=== PATIENT | female | born 1945 | race Caucasian/White ===

== ENCOUNTER → 2016-12-08 | Day surgery (SDC) | payer MEDICARE ==
[~2016-12-08] MED LIST: ATEN-173 PO; DABI1CAP PO; FLEC50TA20 PO; LEVO88TA3 PO; LISI10TA PO; SIMV20TA2 PO
== END | disposition home or self-care (01) ==
LOC: C.CATH 06:43
PROVIDERS: ATTEND Internal Medicine Cardiovascular Disease
DX: I48.0 Paroxysmal atrial fibrillation (principal); I34.1 Nonrheumatic mitral (valve) prolapse; I27.2 Other secondary pulmonary hypertension; Z53.8 Procedure and treatment not carried out for other reasons; E78.00 Pure hypercholesterolemia, unspecified

== ENCOUNTER → 2017-07-28 | Outpatient (CLI) | payer MEDICARE ==
[~2017-07-28] MED LIST changes: +AMIO200T4 PO; -FLEC50TA20 PO; +HYDR12.56 PO
--- NOTE | 2017-07-29 07:57 | MAMMOGRAPHY REPORT ---
BILATERAL DIGITAL SCREENING MAMMOGRAM TOMOSYNTHESIS WITH CAD: 07/28/2017 CLINICAL HISTORY: Routine screening. TECHNIQUE: Breast tomosynthesis in addition to standard 2D mammography was performed. Current study was also evaluated with a Computer Aided Detection (CAD) system. COMPARISON: Comparison is made to exams dated: 03/28/2016 mammogram, 03/26/2015 mammogram, 03/21/2014 mammogram, 03/16/2013 mammogram, 03/15/2012 mammogram, and 03/05/2011 mammogram - [facility]. BREAST COMPOSITION: There are scattered areas of fibroglandular density in both breasts. FINDINGS: The parenchymal pattern is unchanged. No developing mass, architectural distortion or clus ter of suspicious microcalcifications is seen in either breast. IMPRESSION: ACR BI-RADS CATEGORY 2: BENIGN There is no mammographic evidence of malignancy. A 1 year screening mammogram is recommended. The pa tient will receive written notification of the results. Approximately 10% of breast cancers are not detected with mammography. A negative mammographic report should not delay biopsy if a clinically suggestive mass is present. Danika Esparza M.D. ay/:07/28/2017 13:27:19 House Mover Helper: Trinity HERNANDEZ(Tamie)(Vito), [facility] letter sent: Normal 1/2 BI-RADS Code: ACR BI-RADS Category 2: Benign
== END | disposition home or self-care (01) ==
LOC: C.MAMM 09:51
PROVIDERS: ATTEND Family Medicine
DX: Z12.31 Encounter for screening mammogram for malignant neoplasm of breast (principal)

== ENCOUNTER 2022-12-27 11:56 | Inpatient (IN) ==
[2022-12-27 12:28] LABS: Basophils # (auto) 0.03 K/uL (0.00-0.20); Basophils % (auto) 0.4 %; Eosinophils # (auto) 0.02 K/uL (0.00-0.50); Eosinophils % (auto) 0.3 %; Hematocrit (blood only) 49.9 % (37.0-47.0); Hemoglobin 16.8 g/dl (12.0-16.0); Immature Granulocytes # (auto) 0.03 K/uL (0.01-0.20); Immature Granulocytes % (auto) 0.4 %; Lymphocytes # (auto) 2.12 K/uL (1.20-3.40); Lymphocytes % (auto) 26.6 %; Mean Corpuscular Hgb Conc 33.7 g/dL (32.0-36.0); Mean Platelet Volume 9.8 fL (9.4-12.4); Monocytes # (auto) 0.72 K/uL (0.11-0.59); Neutrophils # (auto) 5.06 K/uL (1.40-6.50); Neutrophils % (auto) 63.3 %; Platelet Count 257 K/uL (130-400); RDW Standard Deviation 45.8 fL (36.4-46.3); Red Blood Count 5.25 M/uL (4.20-5.40); White Blood Count 7.98 K/ul (4.8-10.8)
[2022-12-27 12:31] LABS: INR 1.1 (0.9-1.1); Partial Thromboplastin Ratio 1.1; Partial Thromboplastin Time 30.9 Seconds (21.0-31.0); Prothrombin Time 12.2 Seconds (9.0-12.0)
[2022-12-27] MEDS ORDERED: SODIUM CHLORIDE 0.9% 500 ML IV ONE (12:49)
--- NOTE | 2022-12-27 12:50 | Emergency Department Note ---
Impression & Plan NSVT (nonsustained ventricular tachycardia), Hypertension, Afib, Cardiac pacemaker in situ, Left bundle branch block, Elevated hemoglobin ED Provider Note NAME: MELISSA GRANADOS AGE: 77 SEX: F ARRIVES VIA: Walk-In INFORMANT: Patient ED PROVIDER(S): Alfonso Singleton MD CHIEF COMPLAINT: Vtach on pacemaker interrogation, referred. PLAN: Disposition: Admit MEDICAL DECISION MAKING: The patient is a pleasant 77-year-old woman with a past medical history of hyp ertension, hyperlipidemia, hypothyroidism, status post PPM who presents to the emergency department referred by her [employer] natural gas technician for detection of ventricular tachycardia on remote interrogation of her device. The patient reports she was surprised when she received a phone call because she has been feeling well. She notes she did go for a walk yesterday for a mile and a half and felt well but did note her heart was in A-fib as indicated by her Apple Watch. She reports this lasted approximately 15 minutes and has been feeling well since then. She denies cp, sob, near fainting or fainting episodes, fevers, chills, cough, congestion, GI or symptoms. On arrival emergency department patient is no acute distress, afebrile with heart rate initially 110s in atrial fibrillation with RVR with blood pressure 180s/130s but signs otherwise stable. Upon my evaluation however in the room the patient had a heart rate of 60 that was paced and blood pressure 150s/100s. The patient appears clinically dry. EKG on arrival demonstrates atrial fibrillation with RVR at 100 with left bundle branch block without Sgarbossa criteria. However while the patient was in her room on the monitor had returned to a paced rhythm in the 60s with narrow complex. Chest x-ray negative for acute abnormality. WBC and platelet within normal limits. H/H 16.8/49.9 consistent with patient's clinical dry appearance. No recent values for comparison. Chemistry without metabolic acidosis. BUN/creatinine is 28 consistent with component of dehydration. Electrolytes and LFTs unremarkable. High-sensitivity troponin 6.9, within normal limits. TSH within normal limits. Case was discussed with [employer] natural gas technician today on transmitting interrogation from the emergency department. He notes that the patient did have episode yesterday around 11 AM which correlates with the timing question. This dem onstrated a wide-complex tachycardia in the upper 140s where he could not completely exclude V. tach though does agree that reviewing other episodes of A- fib with RVR the patient has developed conduction delay at slower rates similar to what she exhibited upon arrival to the emergency department today. I also reviewed the patient's interrogation from yesterday with the patient's [employer] natural gas technician who had contacted the patient this morning. He did facilitate consultation with EP fellow who had reviewed the report. Appreciate consultation with [facility] EP fellow, Dr. Sainz. He describes his review of the transmitted interrogation and is confident that the patient did have nonsustained VT on the event evaluated yesterday. Recommends ischemic evaluation including troponin, echocardiogram and monitoring. Given the holiday weekend patient was referred to the hospital service for admission for further management. The patient and her at the bedside agree with plan. Case was discussed with Dr. Maza, [facility] hospitalist, who will evaluate the patient for admission. Triage Nursing notes reviewed and agree them. Prior/outside medical records reviewed Vital Signs: reviewed Differential diagnosis: Premature contractions, electrolyte abnormality, cardiac dysrhythmia, thyroid dysfunction, pulmonary embolism, infection, gastrointestinal, as well as other pathologies. ER treatment provided: See below. Diagnostics interpreted by me: ECG: Atrial fibrillation with RVR, 100bpm, no ectopy, left bundle branch block, no sgarbossa criteria. Cardiac Monitoring: An order for continuous cardiac monitoring was placed and demonstrated Atrial fibrillation with RVR, 100 bpm, no ectopy. Laboratory studies: See below Imaging studies: See below Consultation(s): [facility] Dr. Maza [facility] hospitalist. HPI: The patient is a pleasant 77-year-old woman with a past medical history of hypertension, hyperlipidemia, hypothyroidism, status post PPM who presents to the emergency department referred by her [employer] natural gas technician for detection of ventricular tachycardia on remote interrogation of her device. The patient reports she was surprised when she received a phone call because she has been feeling well. She notes she did go for a walk yesterday for a mile and a half and felt well but did note her heart was in A-fib as indicated by her Apple Watch. She reports this lasted approximately 15 minutes and has been feeling well since then. She denies cp, sob, near fainting or fainting episodes, fevers, chills, cough, congestion, GI or symptoms. ROS: See above HPI for pertinent positives & negatives. A total of 10 systems reviewed and were otherwise negative. VITALS:See Below PHYSICAL EXAMINATION: GENERAL: Awake, alert, well-appearing, in no distress HENT: Normocephalic, atraumatic. Oropharynx with dry mucous membranes and otherwise unremarkable. EYES: Normal conjunctiva. Sclera non-icteric. NECK: Supple. No nuchal rigidity. FROM. No JVD. RESPIRATORY: Clear to auscultation. CARDIAC: Regular rate, normal rhythm. Extremities warm and well perfused. Pulses equal. ABDOMEN: Soft, non-distended. No tenderness to palpation. No rebound or guarding. No masses. RECTAL: Deferred. MUSCULOSKELETAL: Chest examination reveals no tenderness. The back is symmetrical on inspection without obvious abnormality. There is no CVA tenderness to palpation. No joint edema. LOWER EXTREMITIES: Calves are equal size bilaterally and non-tender. No edema. No discoloration. NEURO: Normal sensorium. No sensory or motor deficits noted. SKIN: No rash or jaundice noted. Alfonso Singleton MD Past Med/Surg History Medical History Afib Atrial flutter Hx of mitral valve prolapse Hypertension Hypothyroidism Osteoarthritis Stroke 10/2013 (NO DEFECITS CURRENTLY/FULLY RECOVERED) Surgical History H/O cardiac radiofrequency ablation X 2 (02/2018 LAST ONE) H/O total hysterectomy History of appendectomy History of cardioversion X 2 (2 YEARS AGO) History of colonoscopy History of dilatation and curettage History of tooth extraction Hx of tonsillectomy Family History Other No significant family history Social History Smoking Status: Never smoker Second Hand Exposure: No; Do You Dip or Chew Tobacco: No; Tobacco Cessation Education Requested by Patient: No Hx Alcohol Use: No Hx Substance Use: No Preferred Language: Chinese Communication Ability: Effective 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 Beliefs That Will Affect Care: None Current Living Situation: Spouse Feels Safe at Home: Yes Safety Concerns: Feels Safe At This Time Assistive Devices: Glasses Allergies Allergies Allergy/AdvReac Type Severity Reaction Status Date / Time azithromycin Allergy Mild Rash Verified 09/13/19 10:43 erythromycin base Allergy Mild Rash Verified 09/13/19 10:43 levofloxacin Allergy Mild Rash Verified 09/13/19 10:43 Penicillins Allergy Mild Rash Verified 09/13/19 10:43 prednisone Allergy Mild RASH Verified 09/13/19 10:43 Home Meds Home Medications Medication Instructions Recorded Confirmed atenolol 25 mg tablet 50 mg PO QAM 09/13/19 12/27/22 calcium phosphate 250 mg-vitamin 2 tab PO QAM 09/13/19 12/27/22 D3 10 mcg (400 unit) chewable tablet (Caltrate Gummy Bites) cholecalciferol (vitamin D3) 50 50 mcg PO QAM 09/13/19 12/27/22 mcg (2,000 unit) capsule (Vitamin D3) coQ10 (ubiquinol) 100 mg capsule 100 mg PO DAILY 09/13/19 12/27/22 cyanocobalamin (vitamin B-12) 1,000 mcg PO DAILY 09/13/19 12/27/22 1,000 mcg tablet hydrochlorothiazide 25 mg tablet 25 mg PO QAM 09/13/19 12/27/22 levothyroxine 88 mcg tablet 88 mcg PO QAM 09/13/19 12/27/22 lisinopril 40 mg tablet 20 mg PO DAILY 09/13/19 12/27/22 multivitamin 1 tab PO DAILY 09/13/19 12/27/22 simvastatin 20 mg tablet 20 mg PO PM 09/13/19 12/27/22 vitamin E 268 mg (400 unit) capsule 400 unit PO DAILY 09/13/19 12/27/22 apixaban 5 mg tablet (Eliquis) 5 mg PO BID 12/27/22 12/27/22 flecainide 150 mg tablet 150 mg PO BID 12/27/22 12/27/22 glucosamine-chondroitin 250 mg-200 2 tab PO DAILY 12/27/22 12/27/22 mg tablet (Osteo Bi-Flex) Results & Data (ED) Vital Signs Vital Signs - 24 hr 12/27/22 11:59 12/27/22 12:59 12/27/22 12:03 Temperature 36.6 C Temperature Source Temporal Artery Scan Pulse Rate 114 H 60 Pulse Rate from SpO2 Sensor Respiratory Rate 16 Respiratory Effort / Characteristics Non-Labored Respiratory Depth Normal Blood Pressure 180/137 H Blood Pressure Mean 151 Pulse Oximetry 92 Oxygen Delivery Method Room Air Room Air Sepsis Recent Fever Within 48 Hours No Sepsis New/Unexplained Change in Mental Status No Sepsis Action Taken by Nursing No Action Required 12/27/22 12:03 12/27/22 12:57 12/27/22 13:00 Temperature Temperature Source Pulse Rate 60 60 Pulse Rate from SpO2 Sensor 59 L 60 Respiratory Rate 13 19 Respiratory Effort / Characteristics Respiratory Depth Blood Pressure 157/100 H Blood Pressure Mean 119 Pulse Oximetry 98 98 Oxygen Delivery Method Room Air Sepsis Recent Fever Within 48 Hours Sepsis New/Unexplained Change in Mental Status Sepsis Action Taken by Nursing 12/27/22 13:10 12/27/22 13:20 12/27/22 13:55 Temperature Temperature Source Pulse Rate 62 60 Pulse Rate from SpO2 Sensor 59 L Respiratory Rate 22 14 Respiratory Effort / Characteristics Respiratory Depth Blood Pressure 117/74 Blood Pressure Mean 91 Pulse Oximetry 96 Oxygen Delivery Method Sepsis Recent Fever Within 48 Hours Sepsis New/Unexplained Change in Mental Status Sepsis Action Taken by Nursing 12/27/22 13:55 12/27/22 14:00 12/27/22 14:10 Temperature Temperature Source Pulse Rate 64 63 60 Pulse Rate from SpO2 Sensor Respiratory Rate 16 21 18 Respiratory Effort / Characteristics Respiratory Depth Blood Pressure Blood Pressure Mean Pulse Oximetry Oxygen Delivery Method Sepsis Recent Fever Within 48 Hours Sepsis New/Unexplained Change in Mental Status Sepsis Action Taken by Nursing 12/27/22 14:20 12/27/22 14:30 12/27/22 15:30 Temperature Temperature Source Pulse Rate 60 60 Pulse Rate from SpO2 Sensor Respiratory Rate 19 17 23 Respiratory Effort / Characteristics Respiratory Depth Blood Pressure Blood Pressure Mean Pulse Oximetry Oxygen Delivery Method Sepsis Recent Fever Within 48 Hours Sepsis New/Unexplained Change in Mental Status Sepsis Action Taken by Nursing 12/27/22 15:40 Temperature Temperature Source Pulse Rate 84 Pulse Rate from SpO2 Sensor Respiratory Rate 24 Respiratory Effort / Characteristics Respiratory Depth Blood Pressure Blood Pressure Mean Pulse Oximetry Oxygen Delivery Method Sepsis Recent Fever Within 48 Hours Sepsis New/Unexplained Change in Mental Status Sepsis Action Taken by Nursing Laboratory Data Attestation: I reviewed the patient's lab results. 12/27/22 12:01 12/27/22 12:01 Lab Results 12/27/22 12/27/22 12/27/22 Range/Units 12:01 12:01 12:01 WBC 7.98 (4.8-10.8) K/ul RBC 5.25 (4.20-5.40) M/uL Hgb 16.8 H (12.0-16.0) g/dl Hct 49.9 H (37.0-47.0) % MCV 95.0 (80.0-100.0) fL MCH 32.0 (25.0-34.0) pg MCHC 33.7 (32.0-36.0) g/dL RDW Std Deviation 45.8 (36.4-46.3) fL RDW Coeff of Neville 13.0 (11.5-14.5) % Plt Count 257 (130-400) K/uL MPV 9.8 (9.4-12.4) fL Immature Gran % (Auto) 0.4 % Neut % (Auto) 63.3 % Lymph % (Auto) 26.6 % [place] % (Auto) 9.0 % Eos % (Auto) 0.3 % Baso % (Auto) 0.4 % Neut # (Auto) 5.06 (1.40-6.50) K/uL Lymph # (Auto) 2.12 (1.20-3.40) K/uL [place] # (Auto) 0.72 H (0.11-0.59) K/uL Eos # (Auto) 0.02 (0.00-0.50) K/uL Baso # (Auto) 0.03 (0.00-0.20) K/uL Immature Gran # (Auto) 0.03 (0.01-0.20) K/uL PT 12.2 H (9.0-12.0) Seconds INR 1.1 (0.9-1.1) APTT 30.9 (21.0-31.0) Seconds PTT Ratio 1.1 Sodium 136 (136-145) mmol/L Potassium 3.9 (3.5-5.1) mmol/L Chloride 98 (98-107) mmol/L Carbon Dioxide 29 (21-32) mmol/L Anion Gap 9 (3-11) BUN 29 H (6-23) mg/dl Creatinine 1.03 (0.6-1.2) mg/dl Est Cr Clr Drug Dosing Not Reportable Est GFR ( Amer) 60.3 ml/min Est GFR (Non-Af Amer) 52.0 ml/min BUN/Creatinine Ratio 28.2 H (10-20) Glucose 108 H (70-99(Fasting)) mg/dl Calcium 10.1 (8.6-10.3) mg/dl Phosphorus 2.5 (2.5-4.9) mg/dl Magnesium 1.9 (1.7-2.4) mg/dl Total Bilirubin 0.8 (0.2-1.0) mg/dl AST 28 (13-39) U/L ALT 17 (7-52) U/L Alkaline Phosphatase 44 (34-104) U/L Troponin I High Sens 6.9 (0-14) pg/ml Total Protein 7.1 (6.0-8.3) gm/dl Albumin 4.6 (3.4-5.0) gm/dl Globulin 2.5 (2.5-4.0) gm/dl Albumin/Globulin Ratio 1.8 (0.9-2) TSH (0.300-4.500) uIu/ml 12/27/22 Range/Units 12:01 WBC (4.8-10.8) K/ul RBC (4.20-5.40) M/uL Hgb (12.0-16.0) g/dl Hct (37.0-47.0) % MCV (80.0-100.0) fL MCH (25.0-34.0) pg MCHC (32.0-36.0) g/dL RDW Std Deviation (36.4-46.3) fL RDW Coeff of Neville (11.5-14.5) % Plt Count (130-400) K/uL MPV (9.4-12.4) fL Immature Gran % (Auto) % Neut % (Auto) % Lymph % (Auto) % [place] % (Auto) % Eos % (Auto) % Baso % (Auto) % Neut # (Auto) (1.40-6.50) K/uL Lymph # (Auto) (1.20-3.40) K/uL [place] # (Auto) (0.11-0.59) K/uL Eos # (Auto) (0.00-0.50) K/uL Baso # (Auto) (0.00-0.20) K/uL Immature Gran # (Auto) (0.01-0.20) K/uL PT (9.0-12.0) Seconds INR (0.9-1.1) APTT (21.0-31.0) Seconds PTT Ratio Sodium (136-145) mmol/L Potassium (3.5-5.1) mmol/L Chloride (98-107) mmol/L Carbon Dioxide (21-32) mmol/L Anion Gap (3-11) BUN (6-23) mg/dl Creatinine (0.6-1.2) mg/dl Est Cr Clr Drug Dosing Est GFR ( Amer) ml/min Est GFR (Non-Af Amer) ml/min BUN/Creatinine Ratio (10-20) Glucose (70-99(Fasting)) mg/dl Calcium (8.6-10.3) mg/dl Phosphorus (2.5-4.9) mg/dl Magnesium (1.7-2.4) mg/dl Total Bilirubin (0.2-1.0) mg/dl AST (13-39) U/L ALT (7-52) U/L Alkaline Phosphatase (34-104) U/L Troponin I High Sens (0-14) pg/ml Total Protein (6.0-8.3) gm/dl Albumin (3.4-5.0) gm/dl Globulin (2.5-4.0) gm/dl Albumin/Globulin Ratio (0.9-2) TSH 1.613 (0.300-4.500) uIu/ml Administered Medications Flecainide Acetate (Flecainide Acetate 100 Mg Tablet) 150 mg PO 1830 [facility] Stop: 12/27/22 23:00 Last Admin: 12/27/22 18:36 Dose: 150 mg Documented By: MARLY Lisinopril (Lisinopril 20 Mg Tab) 20 mg PO 1600 [facility] Stop: 01/26/23 16:59 Last Admin: 12/27/22 17:10 Dose: 20 mg Documented By: LAURA Discontinued Medications Sodium Chloride (Nss) 500 mls @ 999 mls/hr IV .Q31M ONE Stop: 12/27/22 13:19 Last Infusion: 12/27/22 14:27 Dose: 0 mls/hr Documented By: Admin: 12/27/22 13:56 Dose: 999 mls/hr Documented By: PING Magnesium Oxide (Magnesium Oxide 400 Mg Tab) 400 mg PO ONE ONE Stop: 12/27/22 16:11 Last Admin: 12/27/22 17:10 Dose: 400 mg Documented By: LAURA Miscellaneous (Patient's Height &/Or Weight Needed) 1 each N/A NOW STA Stop: 12/27/22 19:21 Last Admin: 12/27/22 19:55 Dose: Not Given Documented By: VINOD Potassium Chloride (Potassium Chloride Crtab 20 Meq Tabcr) 20 meq PO NOW STA Stop: 12/27/22 16:09 Last Admin: 12/27/22 17:10 Dose: 20 meq Documented By: LAURA Imaging Data Radiologist's Impression: Chest X-Ray 12/27/22 12:03 XR chest 1V portable CLINICAL HISTORY: Chest pain, nonspecific TECHNIQUE: Single frontal radiograph of the chest was obtained. Comparison: Comparison is made to chest radiograph 01/29/2015 FINDINGS: An implanted pacemaker is seen. Calcified aortic knob is seen. The lungs are clear. No evidence of pleural effusion or pneumothorax. IMPRESSION: No acute chest disease. ACT 112: Negative or not required by law. Electronically signed by: Javier Calero M.D. 12/27/2022 1:17 PM Discharge Plan Visit Data Chief Complaint: Referred by Doctor Stated Complaint: VENTRICULAR TACHYCARDIA ED Provider: Alfonso Singleton Discharge Problem: NSVT (nonsustained ventricular tachycardia), Hypertension, Afib, Cardiac pacemaker in situ, Left bundle branch block, Elevated hemoglobin Patient Disposition: Admitted As Inpatient Discharge Instructions Interventions: ED Discharge Assessment Last Done: 12/27/22 18:38
[2022-12-27 13:14] LABS: Albumin Level 4.6 gm/dl (3.4-5.0); Anion Gap 9 (3-11); Bilirubin,Total 0.8 mg/dl (0.2-1.0); Calcium 10.1 mg/dl (8.6-10.3); Carbon Dioxide 29 mmol/L (21-32); Chloride 98 mmol/L (98-107); Magnesium 1.9 mg/dl (1.7-2.4); Potassium 3.9 mmol/L (3.5-5.1); Sodium 136 mmol/L (136-145)
--- NOTE | 2022-12-27 13:19 | XRay Report ---
XR chest 1V portable CLINICAL HISTORY: Chest pain, nonspecific TECHNIQUE: Single frontal radiograph of the chest was obtained. Comparison: Comparison is made to chest radiograph 01/29/2015 FINDINGS: An implanted pacemaker is seen. Calcified aortic knob is seen. The lungs are clear. No evidence of pl eural effusion or pneumothorax. IMPRESSION: No acute chest disease. ACT 112: Negative or not required by law. Electronically signed by: Javier Calero M.D. 12/27/2022 1:17 PM
[2022-12-27 13:20] LABS: Alanine Aminotransferase 17 U/L (7-52); Albumin Globulin Ratio 1.8 (0.9-2); Alkaline Phosphatase 44 U/L (34-104); Aspartate Aminotransferase 28 U/L (13-39); BUN Creatinine Ratio 28.2 (10-20); Blood Urea Nitrogen 29 mg/dl (6-23); Est GFR (African American) 60.3 ml/min; Globulin 2.5 gm/dl (2.5-4.0); Glucose 108 mg/dl (70-99(Fasting)); Phosphorus 2.5 mg/dl (2.5-4.9); Total Protein 7.1 gm/dl (6.0-8.3)
[2022-12-27 13:26] LABS: Troponin I High Sensitivity 6.9 pg/ml (0-14)
--- NOTE | 2022-12-27 15:44 | History & Physical Report ---
Date of Service December 27, 2022 Assessment & Plan (1) NSVT (nonsustained ventricular tachycardia): Plan: NSVT - Stable, without hemodynamic instability/hypotension. Was called and notified by remote EP monitoring after an episode 12/26 - Confirmed on EP Fellow review remotely by [facility] EP at time of admission - Monitor overnight, optimize K 4.0 and Mg 2.0 - Was in RVR with LBBB, converted spontaneously to paced narrow complex - No ischemic changes on EKG - On EP review has had some new aberrancy with Afib on past review. Episode yesterday was not aberrancy, was VT per their review. - hs trop normal. Echo pending. Recommended further ischemic workup based on echo results, cath not recommended initially Converted atenolol to - Cardiology consulted. [facility] records pending Afib w/ RVR S/p A-fib ablation 2016, repeat ablation 2018 following continued A-fib didier pite atenolol/flecainide - Takes flecanide 150mg BID 6:30am/6:30pm, eliquis 8:30am/8:30pm - s/p pacer placement by Dr. Wang - Previously started on atenolol for blood pressure, has never been trialed on metoprolol. BP has been well controlled Atenolol converted to metoprolol as noted Currently in paced rhythm, 60s Follow on telemetry Patient is anticoagulated on Eliquis 5mg BID. Switched from pradaxa last June due to insurance. Metoprolol IV as needed for RVR, not currently required Hypertension - Well controlled at home after increased atenolol 50mg AM/12.5mg HS Continue lisinopril Continue hydrochlorothiazide Creatinine is 1.03 on admission, with normal baseline Pre-DM A1c pending BSG on admit adequately controlled, 108., diet controlled follow BSG daily. If rising greater than 140 add weight-based SSI. Goal BSG [id number] History of left MCA cardioembolic stroke 2013 Anticoagulated on ELiquis. Switched from pradaxa last June. - No residual deficits, completely recovered Based on level of activity is able to walk in the grocery store, go upstairs, and do laundry on her own. - On simvastatin 20mg HS, mod-high doses were deferred due to low LDL in the p ast and cardioembolic origin of her stroke Hypothyroid - Synthroid [facility] 6:30am CODE STATUS: Conditional code. No intubation or chest compressions in the setting of respiratory/cardiac arrest, but would want shocks/ACLS medications in the setting of ventricular tachycardia/ventricular fibrillation Diet: Heart healthy Disposition: PCU DVT prophylaxis: Anticoagulated (2) Afib: (3) Stroke: (4) Hypothyroidism: (5) Hypertension: History of Present Illness Primary Care Provider: Kitty Mack MD 77-year-old female with a past medical history of hypothyroidism, hypertension, hyperlipidemia, and A-fib s/p ablation and s/p pacemaker placement who presents when her electronic monitor reported nonsustained VT prompting a call from her monitoring service directed to the hospital. On arrival to ER patient was with A-fib RVR at 100s, left bundle branch block without Sgarbossa criteria met and subsequently converted to paced rhythm in the 60s. Device interrogation was performed with [facility] EP fellow Dr. Sainz who reviewed and noted this was an episode of nonsustained VT. Patient was recomm ended for overnight observation, electrolyte optimization, and echocardiogram. High sensitive troponin is normal. CXR: No acute findings TSH: Normal Magnesium: 1.9, 1 dose given to optimize to level of 2.0 Potassium: 3.9, 1 dose to optimize at 4.0 WBC, Hgb normal Patient is seen at the bedside with her present. She reports that she is very active and was walking for around a mile yesterday. Noticed a little fluttering in her chest, but nothing unusual. No lightheadedness, dizziness. No recent chest pain, chest pressure. No shortness of breath. No syncope. She has not had chest pressure recently. She has been taking all of her home medications including flecainide, atenolol, and blood pressure medicine. She is compliant with Eliquis. She switched to this from Pradaxa last June due to insurance issues. She reports she received a call from remote electrophysiology noting an episode of nonsustained VT and recommended hospital evaluation. Otherwise she feels she has had no new symptoms and has been in her normal, well state of health. She had a distant CVA cardioembolic due to A-fib but likely has no residual deficits and recovered completely from this. No tobacco products No alcohol use since being diagnosed with A-fib Medical history reviewed CODE STATUS: The setting of a respiratory or cardiac arrest she would not want CPR or intubation; however if she were to develop VT/V-fib she would want medication/shocks if able to terminate the rhythm. Will list as conditional code Allergies Allergy/AdvReac Type Severity Reaction Status Date / Time azithromycin Allergy Mild Rash Verified 09/13/19 10:43 erythromycin base Allergy Mild Rash Verified 09/13/19 10:43 levofloxacin Allergy Mild Rash Verified 09/13/19 10:43 Penicillins Allergy Mild Rash Verified 09/13/19 10:43 prednisone Allergy Mild RASH Verified 09/13/19 10:43 Home Medications Medication Instructions Recorded Confirmed Type atenolol 25 mg tablet 25 mg PO QAM 09/13/19 09/13/19 History calcium phosphate 250 mg-vitamin 2 tab PO DAILY 09/13/19 09/13/19 History D3 10 mcg (400 unit) chewable tablet (Caltrate Gummy Bites) cholecalciferol (vitamin D3) 50 50 mcg PO DAILY 09/13/19 09/13/19 History mcg (2,000 unit) capsule (Vitamin D3) coQ10 (ubiquinol) 100 mg capsule 100 mg PO DAILY 09/13/19 09/13/19 History cyanocobalamin (vitamin B-12) 1,000 mcg PO DAILY 09/13/19 09/13/19 History 1,000 mcg tablet dabigatran etexilate 150 mg 150 mg PO BID 09/13/19 09/13/19 History capsule (Pradaxa) glucosamine sulf dipot 3 cap PO DAILY 09/13/19 09/13/19 History chlr,msm,chond 550 mg-C 30 mg-domenic 1 mg capsule (Glucosamine Chondroitin) hydrochlorothiazide 25 mg tablet 25 mg PO QAM 09/13/19 09/13/19 History levothyroxine 88 mcg tablet 88 mcg PO QAM 09/13/19 09/13/19 History lisinopril 40 mg tablet 40 mg PO DAILY 09/13/19 09/13/19 History multivitamin 1 tab PO DAILY 09/13/19 09/13/19 History simvastatin 20 mg tablet 20 mg PO PM 09/13/19 09/13/19 History turmeric 400 mg capsule 400 mg PO DAILY 09/13/19 09/13/19 History vitamin E 268 mg (400 unit) capsule 400 unit PO DAILY 09/13/19 09/13/19 History Past Med/Surg History Medical History (Updated 12/27/22 @ 15:50 by Patric Maza MD) Afib Atrial flutter Hx of mitral valve prolapse Hypertension Hypothyroidism Osteoarthritis Stroke 10/2013 (NO DEFECITS CURRENTLY/FULLY RECOVERED) Surgical History H/O cardiac radiofrequency ablation X 2 (02/2018 LAST ONE) H/O total hysterectomy History of appendectomy History of cardioversion X 2 (2 YEARS AGO) History of colonoscopy History of dilatation and curettage History of tooth extraction Hx of tonsillectomy Family History Other No significant family history Social History (System 09/13/19 @ 09:48 by Sintia Pabon) Smoking Status: Never smoker Second Hand Exposure: Yes (IN THE PAST); Do You Dip or Chew Tobacco: No; Hx Alcohol Use: No Hx Substance Use: No Preferred Language: Wallisian Dental Financial Coordinator Required: No Beliefs That Will Affect Care: None Current Living Situation: Significant Other Feels Safe at Home: Yes Assistive Devices: Glasses Review of Systems Review of Systems: All systems reviewed & are unremarkable except as noted in HPI & below Physical Exam Physical Exam: General: A&Ox3. NAD. Cooperative. HEENT: Atraumatic, normocephalic. Vision/hearing grossly intact. Pupils equal and reactive to light Pulm: CTAB A&P. -wheezes, -rales, -rhonchi. Symmetrical chest rise. No increased work of breathing. No respiratory distress. Cardiac: RRR, -mrg. Radial pulses intact and symmetrical. No JVD. No lower ex tremity edema Abdominal: Nontender, nondistended, soft. BS present. Extremities: Moves all extremities equally. Health Services Director strength, ankle dorsiflexion/plantarflexion grossly intact and symmetrical. No sensory deficit to soft touch. No edema Results & Data Results & Data Vital Signs (Past 12 Hours) Vital Signs Temp Pulse Resp BP Pulse Ox O2 Del Method 12/27/22 13:55 64 16 12/27/22 13:55 117/74 12/27/22 13:20 60 14 12/27/22 13:10 62 22 96 12/27/22 13:00 60 19 157/100 H 98 12/27/22 12:57 60 13 98 12/27/22 12:03 Room Air 12/27/22 12:03 Room Air 12/27/22 12:59 60 12/27/22 11:59 36.6 C 114 H 16 180/137 H 92 Room Air PG Care Time/CCT Total # of Minutes Spent Total Time Spent with Patient: Total time spent is greater than 50% in coordination of care (as documented) at patient's floor/unit and/or counseling patient: Coding Level of Care Code 32047 INT INP/OBS CARE 3/75MIN Diagnoses NSVT (nonsustained ventricular tachycardia) I47.29 Afib I48.91 Stroke I63.9 Hypothyroidism E03.9 Hypertension I10
[2022-12-27] MEDS ORDERED: POTASSIUM CHLORIDE CRTAB 20 MEQ TABCR PO STA (16:08)
[2022-12-27] MEDS ORDERED: MAGNESIUM OXIDE 400 MG TAB PO ONE (16:10)
[2022-12-27] MEDS: lisinopril 20 MG TAB PO SCH (17:10)
[2022-12-27] MEDS ORDERED: FLECAINIDE ACETATE 100 MG TABLET PO SCH (18:30)
[2022-12-27] MEDS ORDERED: ACETAMINOPHEN 325 MG TAB PO PRN (19:17)
[2022-12-27] MEDS ORDERED: Patient's HEIGHT &/or WEIGHT Needed STA (19:20)
[2022-12-27] MEDS: METOPROLOL TARTRATE 25 MG TAB PO SCH (21:23)
[2022-12-27] MEDS: APIXABAN 5 MG TABLET PO SCH (21:25)
[2022-12-28] MEDS ORDERED: FLECAINIDE ACETATE 100 MG TABLET PO SCH (06:30)
[2022-12-28] MEDS ORDERED: LEVOTHYROXINE SODIUM 88 MCG TABLET PO SCH (06:30)
[2022-12-28 07:33] LABS: Basophils # (auto) 0.04 K/uL (0.00-0.20); Basophils % (auto) 0.7 %; Eosinophils # (auto) 0.06 K/uL (0.00-0.50); Hematocrit (blood only) 46.6 % (37.0-47.0); Hemoglobin 15.6 g/dl (12.0-16.0); Immature Granulocytes # (auto) 0.02 K/uL (0.01-0.20); Immature Granulocytes % (auto) 0.3 %; Lymphocytes # (auto) 2.04 K/uL (1.20-3.40); Lymphocytes % (auto) 34.7 %; Mean Corpuscular Hemoglobin 32.2 pg (25.0-34.0); Mean Corpuscular Hgb Conc 33.5 g/dL (32.0-36.0); Mean Corpuscular Volume 96.1 fL (80.0-100.0); Monocytes # (auto) 0.71 K/uL (0.11-0.59); Monocytes % (auto) 12.1 %; Neutrophils # (auto) 3.01 K/uL (1.40-6.50); Neutrophils % (auto) 51.2 %; Platelet Count 227 K/uL (130-400); RDW Coefficient of Variation 13.2 % (11.5-14.5); RDW Standard Deviation 47.3 fL (36.4-46.3); Red Blood Count 4.85 M/uL (4.20-5.40); White Blood Count 5.88 K/ul (4.8-10.8)
[2022-12-28] MEDS: APIXABAN 5 MG TABLET PO SCH (08:40)
[2022-12-28] MEDS: METOPROLOL TARTRATE 25 MG TAB PO SCH (08:40)
[2022-12-28 08:54] LABS: BUN Creatinine Ratio 22.4 (10-20); Calcium 9.1 mg/dl (8.6-10.3); Est GFR (African American) 76.1 ml/min; Est GFR (Non-African American) 65.6 ml/min; Magnesium 1.7 mg/dl (1.7-2.4); Potassium 3.4 mmol/L (3.5-5.1)
[2022-12-28] MEDS ORDERED: hydroCHLOROthiazide 25 MG TAB PO SCH (09:00)
[2022-12-28] MEDS ORDERED: POTASSIUM CHLORIDE CRTAB 20 MEQ TABCR PO STA (09:10)
[2022-12-28] MEDS: MAGNESIUM SULFATE / D5W 1 GM/100 ML BAG IV SCH ×2 (09:52→11:33)
--- NOTE | 2022-12-28 12:58 | XCELERA ---
[id number]\[id number]
--- NOTE | 2022-12-28 13:09 | Cardiology Consultation ---
Date of Consultation December 28, 2022 Assessment & Plan (1) NSVT (nonsustained ventricular tachycardia): (2) Paroxysmal atrial fibrillation: (3) Cardiac pacemaker in situ: (4) Left bundle branch block: Plan ASSESSMENT/PLAN: 1. Nonsustained ventricular tachycardia: Noted on telemetry here and also reported from [facility] pacemaker interrogation (not available for review). We discussed the diagnosis. Fortunately, she is asymptomatic. Concerned that this is related to flecainide and recommended that she discontinue flecainide. She was anxious about discontinuing flecainide. We discussed the fact that ventricular tachycardia can be dangerous and that flecainide can be pro arrhythmic. Recommend increasing beta-claudia. Consider outpatient noninvasive ischemic evaluation. 2. Paroxysmal atrial fibrillation: Has undergone ablation x2 and still has recurrent A-fib. Noted to have A-fib during this admission despite flecainide. Discussed the fact that flecainide is not maintaining sinus rhythm and now evidence of ventricular arrhythmia. Also, septum measures 1.6 cm. Flecainide does not appear to be an optimal choice for her at this time. Recommended discontinuation of flecainide. Increase home atenolol from 50 mg in the morning and 12.5 mg in the evening to 50 mg in the morning and 25 mg in the evening. She can take an additional 25 mg in the evening for tachycardia. Since she seems to be asymptomatic while in A-fib while here, rate control strategy seems like a reasonable option. Continue anticoagulation for stroke risk reduction. 3. Left bundle branch block: Unclear if this is new or not but noted to have left bundle branch block on initial ECG here while in A-fib. Consider outpatient ischemic evaluation as above. No angina. 4. Pacemaker: Follows with electrophysiology through [facility] (Dr. Menjivar). 5. Disposition: Recommended that she contact Dr. Menjivar's office on 12/30/2022 to notify of this hospital stay and discontinuation of flecainide. Her office should also have the information about her pacemaker interrogation. After discussion with her, I personally contacted [facility] on-call human services instructor, Dr. Yovani Prater. Discussed the reported findings on [facility] interrogation and concern for flecainide. He was in full agreement to di scontinue flecainide and to follow-up with Dr. Menjivar. This was relayed to patient and she seemed much more comfortable discontinuing flecainide. Today's visit was 75 minutes in duration, which includes [id number] time, counseling patient, coordinating care, discussing with physician (human services instructor) at [facility] via telephone, discussing with nursing staff, discussing with primary hospitalist, reviewing records, and completing documentation. Thank you for allowing me to participate in the care of your patient. Please call for any other questions or concerns. Sincerely, Adams Haywood M.D. History of Present Illness Reason for Consultation: Nonsustained VTMs. Carlito ('jamar senior') Requesting Physician: Dr. Maza Attending Physician: Cheo Ceballos MD History of Present Illness Ms. Esteban ('jamar senior') is a pleasant 77-year-old female with a history significant for paroxysmal atrial fibrillation s/p afib ablation x 2 ([facility]), stroke, hypertension, hypothyroidism, and [employer] pacemaker (2020 [facility]). Her primary clinical transformation specialist is Dr. Valverde with [facility]. Her human services instructor is Dr. Menjivar of [facility]. She was admitted on 12/27/2022 to [facility] after being notified by [facility] that she was having episodes of ventricular tachycardia based on her pacemaker findings that were transmitted on 12/26/2022. Pacemaker interrogation was not available for personal review from [facility] but Dr. Singleton in the ER here documented a conversation between EP fellow at [facility], Dr. Sainz. Nonsustained ventricular tachycardia was reported. She was completely asymptomatic in this regard. She states that she used to be symptomatic with atrial fibrillation but after her second ablation, she has not noted any significant symptoms. On 12/26/2022, she walked 1.5 miles and tolerated it well but noted that her heart rate was elevated on her Fitbit. She denied chest pain, shortness of breath, palpitations, or other symptom. She has been on flecainide 150 mg twice daily for at least 1 year. She has been on Eliquis and tolerating it well without melena, hematochezia, or hematuria. She takes atenolol 50 mg in the morning and 12.5 mg in the evening. She has an additional 12.5 mg available in the evening if she develops A-fib symptoms. She recalls being on amiodarone in the past but did not tolerate it. When she was seen earlier this afternoon, she denied chest pain, shortness of breath, syncope, near syncope, palpitations, or other symptoms. Review of systems: As above. Review of systems otherwise negative/unremarkable. Family history: Father had [place]. Social history: She denies smoking, alcohol, or drug abuse. She lives at home with her social sciences chair, Mukul. She has 1 daughter. Mukul was present at the bedside. Allergies Allergy/AdvReac Type Severity Reaction Status Date / Time azithromycin Allergy Mild Rash Verified 09/13/19 10:43 erythromycin base Allergy Mild Rash Verified 09/13/19 10:43 levofloxacin Allergy Mild Rash Verified 09/13/19 10:43 Penicillins Allergy Mild Rash Verified 09/13/19 10:43 prednisone Allergy Mild RASH Verified 09/13/19 10:43 Home Medications Medication Instructions Recorded Confirmed Type calcium phosphate 250 mg-vitamin 2 tab PO QAM 09/13/19 12/27/22 History D3 10 mcg (400 unit) chewable tablet (Caltrate Gummy Bites) cholecalciferol (vitamin D3) 50 50 mcg PO QAM 09/13/19 12/27/22 History mcg (2,000 unit) capsule (Vitamin D3) coQ10 (ubiquinol) 100 mg capsule 100 mg PO DAILY 09/13/19 12/27/22 History cyanocobalamin (vitamin B-12) 1,000 mcg PO DAILY 09/13/19 12/27/22 History 1,000 mcg tablet hydrochlorothiazide 25 mg tablet 25 mg PO QAM 09/13/19 12/27/22 History levothyroxine 88 mcg tablet 88 mcg PO QAM 09/13/19 12/27/22 History lisinopril 40 mg tablet 20 mg PO DAILY 09/13/19 12/27/22 History multivitamin 1 tab PO DAILY 09/13/19 12/27/22 History simvastatin 20 mg tablet 20 mg PO PM 09/13/19 12/27/22 History vitamin E 268 mg (400 unit) capsule 400 unit PO DAILY 09/13/19 12/27/22 History apixaban 5 mg tablet (Eliquis) 5 mg PO BID 12/27/22 12/27/22 History glucosamine-chondroitin 250 mg-200 2 tab PO DAILY 12/27/22 12/27/22 History mg tablet (Osteo Bi-Flex) atenolol 25 mg tablet 25 mg PO UD 1 month #30 tabs 12/28/22 Rx Patient History Medical History Afib Atrial flutter Hx of mitral valve prolapse Hypertension Hypothyroidism Osteoarthritis Stroke 10/2013 (NO DEFECITS CURRENTLY/FULLY RECOVERED) Surgical History H/O cardiac radiofrequency ablation X 2 (02/2018 LAST ONE) H/O total hysterectomy History of appendectomy History of cardioversion X 2 (2 YEARS AGO) History of colonoscopy History of dilatation and curettage History of tooth extraction Hx of tonsillectomy Family History Other No significant family history Social History Smoking Status: Never smoker Second Hand Exposure: No; Do You Dip or Chew Tobacco: No; Hx Alcohol Use: No Hx Substance Use: No Preferred Language: Turkish Communication Ability: Effective Ip Network Architect Required: No Beliefs That Will Affect Care: None Current Living Situation: Spouse Feels Safe at Home: Yes Assistive Devices: Glasses Physical Exam Physical Exam: Gen.: No acute distress. Alert and oriented. HEENT: Anicteric sclera. Neck: No JVD. No bruits. Normal carotid upstrokes bilaterally. Cardiac: No ventricular heave. Regular. Normal S1-S2. No murmurs, rubs, or gallops. Pulmonary: Clear to auscultation bilaterally without wheezes, rales, or rhonchi. Abdomen: Soft, nontender, nondistended, with normoactive bowel sounds. No bruits noted. Extremities: 2+ radial pulses bilaterally. 2+ posterior tibialis pulses bilaterally. No edema or cyanosis. Psychiatric: Affect appears appropriate. Results & Data Vital Signs (Past 12 Hours) Vital Signs Temp Pulse Resp BP Pulse Ox O2 Del Method 12/28/22 11:33 36.6 C 62 16 118/73 98 Room Air 12/28/22 07:03 36.4 C L 62 18 129/78 99 Room Air 12/28/22 06:23 67 125/68 12/28/22 03:00 36.4 C L 63 16 97/64 L 99 Room Air Laboratory Results Laboratory Results - last 24 hr 12/27/22 12/27/22 12/28/22 12:01 12:01 06:54 WBC 5.88 RBC 4.85 Hgb 15.6 Hct 46.6 MCV 96.1 MCH 32.2 MCHC 33.5 RDW Std Deviation 47.3 H RDW Coeff of Neville 13.2 Plt Count 227 MPV 10.0 Immature Gran % (Auto) 0.3 Neut % (Auto) 51.2 Lymph % (Auto) 34.7 Smith % (Auto) 12.1 Eos % (Auto) 1.0 Baso % (Auto) 0.7 Neut # (Auto) 3.01 Lymph # (Auto) 2.04 Smith # (Auto) 0.71 H Eos # (Auto) 0.06 Baso # (Auto) 0.04 Immature Gran # (Auto) 0.02 Sodium 136 Potassium 3.9 Chloride 98 Carbon Dioxide 29 Anion Gap 9 BUN 29 H Creatinine 1.03 Est Cr Clr Drug Dosing Not Reportable Est GFR ( Amer) 60.3 Est GFR (Non-Af Amer) 52.0 BUN/Creatinine Ratio 28.2 H Glucose 108 H Calcium 10.1 Phosphorus 2.5 Magnesium 1.9 Total Bilirubin 0.8 AST 28 ALT 17 Alkaline Phosphatase 44 Troponin I High Sens 6.9 Total Protein 7.1 Albumin 4.6 Globulin 2.5 Albumin/Globulin Ratio 1.8 TSH 1.613 12/28/22 06:54 WBC RBC Hgb Hct MCV MCH MCHC RDW Std Deviation RDW Coeff of Neville Plt Count MPV Immature Gran % (Auto) Neut % (Auto) Lymph % (Auto) Smith % (Auto) Eos % (Auto) Baso % (Auto) Neut # (Auto) Lymph # (Auto) Smith # (Auto) Eos # (Auto) Baso # (Auto) Immature Gran # (Auto) Sodium 137 Potassium 3.4 L Chloride 100 Carbon Dioxide 30 Anion Gap 7 BUN 19 Creatinine 0.85 Est Cr Clr Drug Dosing 53.0 Est GFR ( Amer) 76.1 Est GFR (Non-Af Amer) 65.6 BUN/Creatinine Ratio 22.4 H Glucose 83 Calcium 9.1 Phosphorus Magnesium 1.7 Total Bilirubin AST ALT Alkaline Phosphatase Troponin I High Sens Total Protein Albumin Globulin Albumin/Globulin Ratio TSH Diagnostic Findings Labs reviewed and notable for normal blood counts, normal renal function, normal potassium initially, normal TSH, normal TSH, normal high-sensitivity troponin. Telemetry personally reviewed and notable for atrial paced rhythm, atrial fibrillation, and nonsustained ventricular tachycardia up to 20 beats in duration. She denies any symptoms that would correlate with these findings. ECGs personally reviewed: ECG 12/27/2022 at 1219: A-fib 100 bpm. LBBB. ECG 12/28/2022 at 11:12 AM: Atrial paced 61 bpm. IVCD be. ECG 12/28/2022 at 1320: Atrial paced 60 bpm. Nonspecific T wave abnormality. Prolonged QT. Echo 12/28/2022: Normal LV size, wall motion, systolic function. EF 55 to 60%. Moderate LVH (septum 1.6 cm). Severe left atrial dilation. Mildly reduced RV systolic function. Mild MR. Mild to moderate TR. RVSP 31. Pacemaker interrogation done here reported no ventricular tachycardia, however full interrogation not available for review and this interrogation only includes data since 12/27/2022. Chest x-ray 12/27/2022: No acute disease in the chest per radiology. Medications Administered Current Inpatient Medications Acetaminophen (Acetaminophen 325 Mg Tab) 650 mg PO Q4H PRN PRN Reason: Pain or Fever Stop: 01/26/23 19:16 Apixaban (Apixaban 5 Mg Tablet) 5 mg PO Q12H YOUSUF Stop: 01/26/23 20:29 Last Admin: 12/28/22 08:40 Dose: 5 mg Flecainide Acetate (Flecainide Acetate 100 Mg Tablet) 150 mg PO Q12H YOUSUF Stop: 01/27/23 06:29 Last Admin: 12/28/22 06:25 Dose: 150 mg Hydrochlorothiazide (Hydrochlorothiazide 25 Mg Tab) 25 mg PO QAM YOUSUF Stop: 01/27/23 08:59 Last Admin: 12/28/22 08:40 Dose: 25 mg Levothyroxine Sodium (Levothyroxine Sodium 88 Mcg Tablet) 88 mcg PO DAILYBB YOUSUF Stop: 01/27/23 06:29 Last Admin: 12/28/22 06:25 Dose: 88 mcg Lisinopril (Lisinopril 20 Mg Tab) 20 mg PO 1600 YOUSUF Stop: 01/26/23 16:59 Last Admin: 12/27/22 17:10 Dose: 20 mg Metoprolol Tartrate (Metoprolol Tartrate 25 Mg Tab) 25 mg PO BID [facility] Stop: 01/26/23 20:59 Last Admin: 12/28/22 08:40 Dose: 25 mg PG Care Time/CCT Total # of Minutes Spent Total Time Spent: 75 Total Time Spent with Patient: Total time spent is greater than 50% in coordination of care (as documented) at patient's floor/unit and/or counseling patient: Coding Level of Care Code 80354 INT INP/OBS CARE 375MIN Diagnoses NSVT (nonsustained ventricular tachycardia) I47.29 Paroxysmal atrial fibrillation I48.0 Cardiac pacemaker in situ Z95.0 Left bundle branch block I44.7 Time Spent (min) 75
[2022-12-28] MEDS: lisinopril 20 MG TAB PO SCH (15:46)
--- NOTE | 2022-12-28 16:08 | Discharge Summary ---
Date of Service December 28, 2022 Admission HPI Per Admitting Provider 77-year-old female with a past medical history of hypothyroidism, hypertension, hyperlipidemia, and A-fib s/p ablation and s/p pacemaker placement who presents when her electronic monitor reported nonsustained VT prompting a call from her monitoring service directed to the hospital. On arrival to ER patient was with A-fib RVR at 100s, left bundle branch block without Sgarbossa criteria met and subsequently converted to paced rhythm in the 60s. Device interrogation was performed with [facility] EP fellow Dr. Sainz who reviewed and noted this was an episode of nonsustained VT. Patient was recommended for overnight observation, electrolyte optimization, and echocardiogram. High sensitive troponin is normal. CXR: No acute findings TSH: Normal Magnesium: 1.9, 1 dose given to optimize to level of 2.0 Potassium: 3.9, 1 dose to optimize at 4.0 WBC, Hgb normal Patient is seen at the bedside with her present. She reports that she is very active and was walking for around a mile yesterday. Noticed a little fluttering in her chest, but nothing unusual. No lightheadedness, dizziness. No recent chest pain, chest pressure. No shortness of breath. No syncope. She has not had chest pressure recently. She has been taking all of her home medications including flecainide, atenolol, and blood pressure medicine. She is compliant with Eliquis. She switched to this from Pradaxa last June due to i nsurance issues. She reports she received a call from remote electrophysiology noting an episode of nonsustained VT and recommended hospital evaluation. Otherwise she feels she has had no new symptoms and has been in her normal, well state of health. She had a distant CVA cardioembolic due to A-fib but likely has no residual deficits and recovered completely from this. No tobacco products No alcohol use since being diagnosed with A-fib Medical history reviewed CODE STATUS: The setting of a respiratory or cardiac arrest she would not want CPR or intubation; however if she were to develop VT/V-fib she would want medication/shocks if able to terminate the rhythm. Will list as conditional code Admission Exam Per Admitting Provider General: A&Ox3. NAD. Cooperative. HEENT: Atraumatic, normocephalic. Vision/hearing grossly intact. Pupils equal and reactive to light Pulm: CTAB A&P. -wheezes, -rales, -rhonchi. Symmetrical chest rise. No increased work of breathing. No respiratory distress. Cardiac: RRR, -mrg. Radial pulses intact and symmetrical. No JVD. No lower extremity edema Abdominal: Nontender, nondistended, soft. BS present. Extremities: Moves all extremities equally. [employer] Safety [employer] Health Specialist strength, ankle dorsiflexion/plantarflexion grossly intact and symmetrical. No sensory deficit to soft touch. No edema Principal Diagnosis Nonsustained V. tach, rapid atrial fibrillation Discharge Exam general: Awake, conversant Heart: S1, S2/regular rate and rhythm, no murmur rubs or gallops Lungs: Clear to auscultation bilaterally. Normal effort Abdomen: Soft/nontender/nondistended. No hepatosplenomegaly Extremities: No clubbing/cyanosis. No edema Behavior: Appropriate, cooperative Discharge Data Allergies Allergy/AdvReac Type Severity Reaction Status Date / Time azithromycin Allergy Mild Rash Verified 09/13/19 10:43 erythromycin base Allergy Mild Rash Verified 09/13/19 10:43 levofloxacin Allergy Mild Rash Verified 09/13/19 10:43 Penicillins Allergy Mild Rash Verified 09/13/19 10:43 prednisone Allergy Mild RASH Verified 09/13/19 10:43 Consultations 12/27/22 15:06 ED Decision to Admit Stat 12/27/22 16:11 Consult Cardiology Routine Hospital Course (1) Cardiac pacemaker in situ: (2) Left bundle branch block: (3) Elevated hemoglobin: (4) Stroke: (5) Hypothyroidism: (6) Hypertension: (7) NSVT (nonsustained ventricular tachycardia): (8) Afib: Plan (1) NSVT (nonsustained ventricular tachycardia)/A-fib with rapid ventricular response Plan: patient has been hemodynamically stable. Echocardiogram did not show any wall motion abnormalities Cardiology recommended discontinuing flecainide and increasing the dose of atenolol to 50 mg in the morning and 25 mg in the evening. Cardiology recommended outpatient follow-up with EP compliance analyst Didactic Instructor has cleared the patient for discharge. Electrolytes including potassium and magnesium were replaced continue Eliquis 5 mg twice daily Hypertension - Well controlled at home after increased atenolol 50mg AM/12.5mg HS Continue lisinopril Continue hydrochlorothiazide Creatinine is 1.03 on admission, with normal baseline Pre-DM BSG on admit adequately controlled, 108., diet controlled follow BSG daily. If rising greater than 140 add weight-based SSI. Goal BSG [id number] History of left MCA cardioembolic stroke 2013 Anticoagulated on ELiquis. Switched from pradaxa last June. - No residual deficits, completely recovered Based on level of activity is able to walk in the grocery store, go upstairs, and do laundry on her own. - On simvastatin 20mg HS, mod-high doses were deferred due to low LDL in the past and cardioembolic origin of her stroke Hypothyroid - Synthroid 88mcg 6:30am discharge today Total Time Total Time Spent Total Time Spent (In Minutes): 35 Discharge Plan Discharge Items Patient Disposition: Home - Self-Care Reason For Visit: NSVT Discharge Diagnosis: Nonsustained V. tach Activity: Resume your previous activity Non-emergency contact: Primary Care Provider Call non-emergency contact if: you have any medication questions and your symptoms worsen Follow-up/Referrals: Kitty Mack MD [Primary Care Provider] - Diet: Heart Healthy Addtl Attending Provider Instructions: Advised to follow-up with PCP in 1 week Advised to call Dr. Best's office on Thursday Pending Studies at Discharge: No Stand-Alone Forms: My [facility] Medications and DC Order Prescriptions: New atenolol 25 mg tablet 25 mg PO UD 30 Days Qty: 30 0RF Rx Instructions: 2 tabs in am and 1 tab in pm Continued levothyroxine 88 mcg Tablet 88 mcg PO QAM hydrochlorothiazide 25 mg Tablet 25 mg PO QAM lisinopril 40 mg Tablet 20 mg PO DAILY Rx Instructions: DAILY IN AFTERNOON cyanocobalamin (vitamin B-12) 1,000 mcg Tablet 1,000 mcg PO DAILY vitamin E 400 unit Capsule 400 unit PO DAILY multivitamin Tablet,Chewable 1 tab PO DAILY cholecalciferol (vitamin D3) [Vitamin D3] 50 mcg (2,000 unit) Capsule 50 mcg PO QAM coQ10 (ubiquinol) 100 mg Capsule 100 mg PO DAILY calcium phosphate-vitamin D3 [Caltrate Gummy Bites] 250-400 mg-unit Tablet,Chewable 2 tab PO QAM simvastatin 20 mg Tablet 20 mg PO PM glucosamine-chondroitin [Osteo Bi-Flex] 250-200 mg Tablet 2 tab PO DAILY Eliquis 5 mg tablet 5 mg PO BID Discontinued atenolol 25 mg Tablet 50 mg PO QAM flecainide 150 mg tablet 150 mg PO BID Discharge Orders: Discharge Order (Routine); Ordered 12/28/22 Ordered By: hCeo Ceballos Admission Data Admit Date/Time: 12/27/22 15:45 Attending Provider: Cheo Ceballos Admit Provider: Patric Maza Primary Care Provider: Kitty Mack Other Providers: Patric Maza ; Jurgen Haywood Coding Level of Care Code 88557 INP/OBS DISCH >30 MIN Diagnoses Cardiac pacemaker in situ Z95.0 Left bundle branch block I44.7 Elevated hemoglobin D58.2 Stroke I63.9 Hypothyroidism E03.9 Hypertension I10 NSVT (nonsustained ventricular tachycardia) I47.29 Afib I48.91
--- NOTE | 2022-12-29 20:41 | Electrocardiogram Report ---
Test Reason : Blood Pressure : / mmHG Vent. Rate : 100 BPM Atrial Rate : 000 BPM P-R Int : 000 ms QRS Dur : 148 ms QT Int : 412 ms P-R-T Axes : 000 -13 136 degrees QTc Int : 531 ms Atrial fibrillation Left bundle branch block Abnormal ECG When compared with ECG of 15-SEP-2019 07:52, Atrial fibrillation has replaced Sinus rhythm Vent. rate has increased BY 45 BPM Left bundle branch block is now Present Confirmed by Jurgen Haywood ([id number]) on 12/29/2022 8:40:52 PM Referred By: Confirmed By:Jurgen Haywood
--- NOTE | 2022-12-29 20:42 | Electrocardiogram Report ---
Test Reason : Blood Pressure : / mmHG Vent. Rate : 060 BPM Atrial Rate : 060 BPM P-R Int : 282 ms QRS Dur : 110 ms QT Int : 482 ms P-R-T Axes : 098 030 010 degrees QTc Int : 482 ms Atrial-paced rhythm with prolonged AV conduction Incomplete left bundle block Nonspecific T wave abnormality Prolonged QT Abnormal ECG When compared with ECG of 27-DEC-2022 12:19, Electronic atrial pacemaker has replaced Atrial fibrillation Vent. rate has decreased BY 40 BPM Incomplete left bundle block has replaced Left bundle branch block Confirmed by Jurgen Haywood ([id number]) on 12/29/2022 8:42:28 PM Referred By: Villa Valverde Confirmed By:Jurgen Haywood
--- NOTE | 2022-12-29 22:50 | Electrocardiogram Report ---
Test Reason : Blood Pressure : / mmHG Vent. Rate : 061 BPM Atrial Rate : 061 BPM P-R Int : 334 ms QRS Dur : 122 ms QT Int : 498 ms P-R-T Axes : 081 063 030 degrees QTc Int : 501 ms Atrial-paced rhythm with prolonged AV conduction Non-specific intra-ventricular conduction delay Abnormal ECG When compared with ECG of 27-DEC-2022 13:20, Nonspecific T wave abnormality no longer evident in Anterior leads Confirmed by Jurgen Haywood ([id number]) on 12/29/2022 10:49:53 PM Referred By: Villa Valverde Confirmed By:Jurgen Haywood
== END 2022-12-28 17:04 | disposition home or self-care (01) | DRG 310 ==
LOC: ED 11:56 → SUATTDRO 15:45 → 2S 15:45

== ENCOUNTER 2024-11-19 11:53 | Inpatient (IN) ==
[2024-11-19] MEDS: SODIUM CHLORIDE 0.9% 1,000 ML IV SCH (12:30)
[2024-11-19 12:43] LABS: Hematocrit (blood only) 39.9 % (37.0-47.0); Hemoglobin 12.8 g/dl (12.0-16.0); Immature Granulocytes # (auto) 0.04 K/uL (0.01-0.20); Immature Granulocytes % (auto) 0.5 %; Mean Corpuscular Hemoglobin 27.9 pg (25.0-34.0); Mean Corpuscular Volume 87.1 fL (80.0-100.0); Platelet Count 301 K/uL (130-400); RDW Standard Deviation 47.8 fL (36.4-46.3); Red Blood Count 4.58 M/uL (4.20-5.40); White Blood Count 8.25 K/ul (4.8-10.8)
[2024-11-19] MEDS: OPTIRAY 320 125ml IV ONE (12:51)
[2024-11-19 13:00] LABS: Alanine Aminotransferase 41.0 U/L (7-52); Albumin Globulin Ratio 1.1 (0.9-2); Alkaline Phosphatase 62.0 U/L (34-104); Anion Gap 9.0 (3-11); Bilirubin,Total 0.6 mg/dl (0.2-1.0); Blood Urea Nitrogen 15.0 mg/dl (6-23); Calcium 9.0 mg/dl (8.6-10.3); Carbon Dioxide 27.0 mmol/L (21-32); Chloride 99.0 mmol/L (98-107); Creatinine Clr Calc Pharmacy 57.4 ml/min; Globulin 3.6 gm/dl (2.5-4.0); Glucose 96.0 mg/dl (70-99(Fasting)); Magnesium 2.0 mg/dl (1.7-2.4); Potassium 3.3 mmol/L (3.5-5.1); Sodium 135.0 mmol/L (136-145); Total Protein 7.5 gm/dl (6.0-8.3)
[2024-11-19] MEDS: MECLIZINE HCL 25 MG TAB PO STA (13:03)
--- NOTE | 2024-11-19 13:06 | CT Scan Report ---
CT head/brain wo con CLINICAL HISTORY: neuro deficit, acute stroke suspected. TECHNIQUE: Multiple axial CT images of the head were obtained without contrast. A dose lowering tech nique was utilized adhering to the principles of ALARA. COMPARISON: None FINDINGS: No intracranial hemorrhage seen. No mass effect, midline shift, or hydrocephalus. There is moderate patchy periventricular hypodensity which is nonspecific but usually represents chronic small vessel ischemic change. No skull fracture seen. Visualized paranasal sinuses and mastoid air cells a re clear. IMPRESSION: No acute findings. ACT 112: Negative or not required by law. The above report was generated using voice recognition software. It may contain grammatical, syntax o r spelling errors. Electronically signed by: Siddharth Bauman M.D. 11/19/2024 1:05 PM
--- NOTE | 2024-11-19 13:10 | Emergency Department Note ---
Impression & Plan Dizziness ED Provider Note NAME: MELISSA GRANADOS AGE: 79 SEX: Female INFORMANT: Patient and ED PROVIDER(S): Chano Mcfadden MD CHIEF COMPLAINT: Dizziness PLAN: Disposition: Admitted Outpatient prescription management: none Referral: None MEDICAL DECISION MAKING: Patient presented because of acute dizziness. She had workup obtained. She had a nonfocal examination although the facial numbness at the time of onset was concerning. Patient underwent CT and CT angiography. Blood work did reveal slight hypokalemia. Monitoring did reveal a paced rhythm without tachycardia. ECG did show an atrial paced rhythm as well. Patient was treated with meclizine, fluids and Ativan prior to CT imaging for symptom control. CT and CT angiography revealed no acute findings. On reassessment patient was improved but was still dizzy. She did have a formal ambulatory trial. Patient was unsteady. Given her stroke history, A-fib, and findings today I discussed further evaluation and management in the hospital. Patient in agreement. Consultation was made with [facility] hospitalist service. Case discussed and patient will be admitted for further management. Care/management discussed with: Hospitalist, mental health case manager Level of care consideration(s): After review of the information above and other included data, I feel the patient requires escalation of care to admission Triage Nursing notes: reviewed and agree them. Vital Signs: reviewed and remarkable for hypertension Additional History obtained from: Patient's . No slurred speech or confusion. Chronic Medical/Social Conditions affecting care: Anticoagulation Prior/ Outside/ External records reviewed: none Differential Diagnosis: Benign positional vertigo, dehydration, hypovolemia, anemia, tumor, infection, hypoglycemia, electrolyte abnormalities, cardiac sources, intracerebral event, toxicologic, neurologic, as well as other pathologies. Diagnostics, independently interpreted by me: ECG: Twelve-lead ECG reveals atrial paced rhythm at [address] No ST elevation. Cardiac Monitoring: Cardiac monitoring ordered by me: The patient was placed on continuous cardiac monitoring and observed. It revealed a paced rhythm at 60 bpm. Medical decision rules: None Imaging studies: Head CT: A noncontrast CT scan of the head was performed and was negative for tumor, fracture, intracranial hemorrhage, or other acute pathology. I refer you to the EMR for further details. HPI: 79 year old Female arrives for evaluation of dizziness. This started today at 10 AM and is improving. The patient also notes the following associated symptoms, right facial numbness in the cheek area that was very transient. The patient has taken no medication for relieving factors. Current pain is rated as 0/10. Patient notes that she felt worse with head movement. Unable to describe it as room spinning sensation versus being off balance. Pt denies LOC, headache, fevers, chills, diaphoresis, visual changes, neck pain, chest pain, breathing difficulties, nausea, vomiting, abdominal pain, back pain, melena, hematochezia, urinary symptoms, numbness, weakness, lymphadenopathy, rash, or other complaints. PAST MEDICAL HISTORY: See Below, A-fib, anticoagulated PAST SURGICAL HISTORY: See Below, pacemaker SOCIAL HISTORY: See Below, HOME MEDICATIONS: See Below ALLERGIES: See Below VITALS: See Below PHYSICAL EXAMINATION: GENERAL: Awake, alert, uncomfortable-appearing, in no distress HENT: Normocephalic, atraumatic. Oropharynx unremarkable. EYES: Normal conjunctiva. Sclera non-icteric. PERRLA. EOMI. Lateral nystagmus present. Possible slight rotatory nystagmus noted on leftward gaze. NECK: Inspection normal. Non-tender. Supple. No nuchal rigidity. FROM. No masses. RESPIRATORY: Clear to auscultation. No wheezes. No rales. Normal respiratory effort. CARDIAC: Normal rate. Normal rhythm. No murmurs. No rubs. Extremities warm and well perfused. Pulses equal. No JVD. GI: Soft, non-distended. No tenderness to palpation. No rebound or guarding. No masses. RECTAL: Deferred. MUSCULOSKELETAL: Atraumatic. Chest examination reveals no tenderness. The back is symmetrical on inspection without obvious abnormality. There is no CVA tenderness to palpation. No joint edema. LOWER EXTREMITIES: Calves are equal size bilaterally and non-tender. No edema. No discoloration. NEURO: Normal sensorium. No sensory or motor deficits noted. Cranial nerves II through XII intact. Speech normal. Normal rapid alternating movements. No drift. SKIN: No rash or jaundice noted. PROCEDURES: none CRITICAL CARE: none OBSERVATION NOTE: none Past Med/Surg History Problem List (Updated 11/20/24 @ 09:17 by Arleen Carroll PA-C) Acute labyrinthitis Dizziness (Acute) Atrial fibrillation with rapid ventricular response (Acute) Paroxysmal atrial fibrillation Afib (Acute) Atrial flutter Elevated troponin (Acute) Cardiac pacemaker in situ (Acute) Left bundle branch block (Acute) Elevated hemoglobin (Acute) Stroke 10/2013 (NO DEFECITS CURRENTLY/FULLY RECOVERED) Hypothyroidism Hypertension (Acute) NSVT (nonsustained ventricular tachycardia) (Acute) Encounter for pre-operative examination Facial paresthesia (Acute) Nausea (Acute) Medical History (Updated 11/20/24 @ 09:17 by Arleen Carroll PA-C) Osteoarthritis Hx of mitral valve prolapse Surgical History History of dilatation and curettage H/O total hysterectomy History of colonoscopy History of appendectomy History of tooth extraction Hx of tonsillectomy H/O cardiac radiofrequency ablation X 2 (02/2018 LAST ONE) History of cardioversion X 2 (2 YEARS AGO) Family History Other No significant family history Social History Smoking Status: Never smoker Second Hand Exposure: No; Do You Dip or Chew Tobacco: No; Hx Alcohol Use: No Hx Substance Use: No Preferred Language: [place] Communication Ability: Effective Suit Attendant Required: No Beliefs That Will Affect Care: None Current Living Situation: Significant Other Other Information That Helps Us Care for You: No Feels Safe at Home: Yes Safety Concerns: Feels Safe At This Time Assistive Devices: Glasses Allergies Allergies Allergy/AdvReac Type Severity Reaction Status Date / Time azithromycin Allergy Mild Rash Verified 09/13/19 10:43 erythromycin base Allergy Mild Rash Verified 09/13/19 10:43 levofloxacin Allergy Mild Rash Verified 09/13/19 10:43 Penicillins Allergy Mild Rash Verified 09/13/19 10:43 prednisone Allergy Mild RASH Verified 09/13/19 10:43 Home Meds Home Medications Medication Instructions Recorded Confirmed calcium 250 mg (as phosphate)-vit 2 tab PO QAM 09/13/19 11/19/24 D3 10 mcg (400 unit) chewable tablet (Caltrate Gummy Bites) cholecalciferol (vitamin D3) 50 50 mcg PO QAM 09/13/19 11/19/24 mcg (2,000 unit) capsule (Vitamin D3) coQ10 (ubiquinol) 100 mg capsule 100 mg PO DAILY 09/13/19 11/19/24 cyanocobalamin (vitamin B-12) 1,000 mcg PO DAILY 09/13/19 11/19/24 1,000 mcg tablet hydrochlorothiazide 25 mg tablet 25 mg PO QAM 09/13/19 11/19/24 levothyroxine 88 mcg tablet 88 mcg PO QAM 09/13/19 11/19/24 lisinopril 40 mg tablet 20 mg PO DAILY 09/13/19 11/19/24 multivitamin 1 tab PO DAILY 09/13/19 11/19/24 simvastatin 20 mg tablet 20 mg PO PM 09/13/19 11/19/24 vitamin E 268 mg (400 unit) capsule 400 unit PO DAILY 09/13/19 11/19/24 apixaban 5 mg tablet (Eliquis) 5 mg PO BID 12/27/22 11/19/24 glucosamine-chondroitin 250 mg-200 2 tab PO DAILY 12/27/22 11/19/24 mg tablet (Osteo Bi-Flex) amiodarone 200 mg tablet 200 mg PO DAILY 11/19/24 11/19/24 atenolol 25 mg tablet 37.5 mg PO BID 11/19/24 11/19/24 Previous Rx's Medication Instructions Recorded diltiazem HCl 120 mg 120 mg PO DAILY #30 caps 01/24/23 capsule,extended release 24 hr Results & Data (ED) Vital Signs Vital Signs - 24 hr 11/19/24 12:10 11/19/24 12:10 11/19/24 12:16 Pulse Rate Pulse Rate [Apical] 65 Pulse Rate from SpO2 Sensor Respiratory Rate 15 Respiratory Effort / Characteristics Non-Labored Spontaneous Respiratory Depth Normal Respiratory Pattern Regular Blood Pressure 195/107 H Blood Pressure [Right Arm] 195/107 H Blood Pressure Mean 146 Blood Pressure Mean [Right Arm] 136 Blood Pressure Position [Right Arm] Semi-fowlers Pulse Oximetry 98 Oxygen Delivery Method Room Air Room Air 11/19/24 12:18 11/19/24 12:27 11/19/24 12:30 Pulse Rate 61 61 Pulse Rate [Apical] Pulse Rate from SpO2 Sensor 61 Respiratory Rate 19 15 Respiratory Effort / Characteristics Respiratory Depth Respiratory Pattern Blood Pressure 185/100 H Blood Pressure [Right Arm] Blood Pressure Mean 147 Blood Pressure Mean [Right Arm] Blood Pressure Position [Right Arm] Pulse Oximetry 98 Oxygen Delivery Method 11/19/24 12:39 11/19/24 12:39 11/19/24 13:03 Pulse Rate 63 60 69 Pulse Rate [Apical] Pulse Rate from SpO2 Sensor 60 69 Respiratory Rate 13 24 Respiratory Effort / Characteristics Respiratory Depth Respiratory Pattern Blood Pressure Blood Pressure [Right Arm] Blood Pressure Mean Blood Pressure Mean [Right Arm] Blood Pressure Position [Right Arm] Pulse Oximetry 99 97 Oxygen Delivery Method 11/19/24 13:06 11/19/24 13:27 11/19/24 13:27 Pulse Rate 68 Pulse Rate [Apical] Pulse Rate from SpO2 Sensor 68 Respiratory Rate 15 Respiratory Effort / Characteristics Respiratory Depth Respiratory Pattern Blood Pressure 194/121 H 157/92 H Blood Pressure [Right Arm] Blood Pressure Mean 152 110 Blood Pressure Mean [Right Arm] Blood Pressure Position [Right Arm] Pulse Oximetry 97 Oxygen Delivery Method 11/19/24 13:27 11/19/24 13:28 11/19/24 13:30 Pulse Rate Pulse Rate [Apical] 65 Pulse Rate from SpO2 Sensor Respiratory Rate 17 Respiratory Effort / Characteristics Non-Labored Spontaneous Respiratory Depth Normal Respiratory Pattern Regular Blood Pressure 157/92 H 168/88 H Blood Pressure [Right Arm] 157/92 H Blood Pressure Mean 110 123 Blood Pressure Mean [Right Arm] 113 Blood Pressure Position [Right Arm] Semi-fowlers Pulse Oximetry 97 Oxygen Delivery Method Room Air 11/19/24 13:30 11/19/24 13:40 11/19/24 14:02 Pulse Rate 62 Pulse Rate [Apical] 67 Pulse Rate from SpO2 Sensor 62 Respiratory Rate 24 16 18 Respiratory Effort / Characteristics Non-Labored Spontaneous Respiratory Depth Normal Respiratory Pattern Blood Pressure Blood Pressure [Right Arm] 175/106 H Blood Pressure Mean Blood Pressure Mean [Right Arm] 129 Blood Pressure Position [Right Arm] Pulse Oximetry 98 98 Oxygen Delivery Method Room Air 11/19/24 15:24 Pulse Rate Pulse Rate [Apical] 78 Pulse Rate from SpO2 Sensor Respiratory Rate 16 Respiratory Effort / Characteristics Non-Labored Spontaneous Respiratory Depth Normal Respiratory Pattern Regular Blood Pressure Blood Pressure [Right Arm] 183/102 H Blood Pressure Mean Blood Pressure Mean [Right Arm] 129 Blood Pressure Position [Right Arm] Semi-fowlers Pulse Oximetry 99 Oxygen Delivery Method Room Air Laboratory Data 11/20/24 05:37 11/20/24 05:37 Lab Results 11/19/24 11/19/2425 Range/Units 12:25 12:38 13:20 WBC 8.25 (4.8-10.8) K/ul RBC 4.58 (4.20-5.40) M/uL Hgb 12.8 (12.0-16.0) g/dl POC Hgb 13.6 (12.0-16.0) g/dl Hct 39.9 (37.0-47.0) % POC Hct 40 (37-47) % MCV 87.1 (80.0-100.0) fL MCH 27.9 (25.0-34.0) pg MCHC 32.1 (32.0-36.0) g/dL RDW Std Deviation 47.8 H (36.4-46.3) fL RDW Coeff of [place] 15.1 H (11.5-14.5) % Plt Count 301 (130-400) K/uL MPV 9.7 (9.4-12.4) fL Immature Gran % (Auto) 0.5 % Neut % (Auto) 66.8 % Lymph % (Auto) 20.0 % [place] % (Auto) 12.1 % Eos % (Auto) 0.4 % Baso % (Auto) 0.2 % Neut # (Auto) 5.51 (1.40-6.50) K/uL Lymph # (Auto) 1.65 (1.20-3.40) K/uL [place] # (Auto) 1.00 H (0.11-0.59) K/uL Eos # (Auto) 0.03 (0.00-0.50) K/uL Baso # (Auto) 0.02 (0.00-0.20) K/uL Immature Gran # (Auto) 0.04 (0.01-0.20) K/uL PT 11.4 (9.0-12.0) Seconds INR 1.1 (0.9-1.1) APTT 31 (21-31) Seconds PTT Ratio 1.2 POC Sodium 137 (135-144) mmol/L Sodium 135 L (136-145) mmol/L POC Potassium 3.2 L (3.3-5.0) mmol/L Potassium 3.3 L (3.5-5.1) mmol/L POC Chloride 98 L (101-112) mmol/L Chloride 99 (98-107) mmol/L Carbon Dioxide 27 (21-32) mmol/L POC Total CO2 25 (24-31) mmol/L Anion Gap 9 (3-11) POC Anion Gap 18.0 (16-25) mmol/L POC BUN 14 (7-18) mg/dl BUN 15 (6-23) mg/dl Creatinine 0.83 (0.6-1.2) mg/dl POC Creatinine 0.9 (0.6-1.3) mg/dl Est Cr Clr Drug Dosing 57.4 ml/min eGFR 71.22 BUN/Creatinine Ratio 18.1 (10-20) Glucose 96 (70-99(Fasting)) mg/dl POC Glucose (other) 95 (70-99) mg/dl Calcium 9.0 (8.6-10.3) mg/dl POC Ioniz Calcium Yaa 1.16 (1.12-1.32) mmol/l Magnesium 2.0 (1.7-2.4) mg/dl Total Bilirubin 0.6 (0.2-1.0) mg/dl AST 56 H (13-39) U/L ALT 41 (7-52) U/L Alkaline Phosphatase 62 (34-104) U/L Troponin I High Sens 5.1 (0-14) pg/ml Total Protein 7.5 (6.0-8.3) gm/dl Albumin 3.9 (3.4-5.0) gm/dl Globulin 3.6 (2.5-4.0) gm/dl Albumin/Globulin Ratio 1.1 (0.9-2) TSH 5.613 H (0.300-4.500) uIu/ml Free T4 1.65 H (0.61-1.60) ng/dl Urine Color Yellow Urine Appearance Clear (Clear) Urine pH 7.5 (4.5-7.5) Ur Specific [place] 1.021 (1.000-1.030) Urine Protein Negative (Negative) Urine Glucose (UA) Negative (Negative) Urine Ketones Negative (Negative) Urine Blood Negative (Negative) Urine Nitrite Negative (Negative) Urine Bilirubin Negative (Negative) Urine Urobilinogen Negative (Negative) Ur Leukocyte Esterase 3+ H (Negative) Urine WBC (Auto) >50 H (0-5) /hpf Urine RBC (Auto) 0-2 (0-2) /hpf U Hyaline Cast (Auto) 0-2 (0-2) /lpf U Epithel Cells (Auto) 0-2 (0-2) /hpf Urine Bacteria (Auto) None Seen (None Seen) Urine Comment Lyme Disease Screen Negative (Negative) Administered Medications Amiodarone HCl (Amiodarone 200 Mg Tab) 200 mg PO DAILY YOUSUF Stop: 12/20/24 08:59 Last Admin: 11/20/24 08:28 Dose: 200 mg Documented By: GENIA Apixaban (Apixaban 5 Mg Tablet) 5 mg PO BID YOUSUF Stop: 12/19/24 20:59 Last Admin: 11/20/24 08:30 Dose: 5 mg Documented By: Admin: 11/19/24 20:11 Dose: 5 mg Documented By: BRITTANY Atenolol (Atenolol 25 Mg Tablet) 37.5 mg PO BID YOUSUF Stop: 12/19/24 20:59 Last Admin: 11/20/24 08:28 Dose: 37.5 mg Documented By: Admin: 11/19/24 20:11 Dose: 37.5 mg Documented By: BRITTANY Diltiazem HCl (Diltiazem Hcl 120 Mg Capcr) 120 mg PO DAILY YOUSUF Stop: 12/20/24 08:59 Last Admin: 11/20/24 08:28 Dose: 120 mg Documented By: GENIA Famotidine (Pepcid 20mg Iv Push) 20 mg in 5 mls @ 2.5 mls/min IV Q12H YOUSUF Stop: 12/19/24 18:59 Last Admin: 11/20/24 07:43 Dose: 2.5 mls/min Documented By: Admin: 11/19/24 20:10 Dose: 2.5 mls/min Documented By: ASM Methylprednisolone 40 mg/ (Syringe) 0.64 mls @ 1.5 mls/min IV Q8H YOUSUF Stop: 12/20/24 05:59 Last Admin: 11/20/24 05:42 Dose: 1.5 mls/min Documented By: BRITTANY Levothyroxine Sodium (Levothyroxine Sodium 88 Mcg Tablet) 88 mcg PO DAILYBB YOUSUF Stop: 12/20/24 06:29 Last Admin: 11/20/24 05:42 Dose: 88 mcg Documented By: BRITTANY Meclizine HCl (Meclizine 12.5 Mg Tab) 12.5 mg PO TID YOUSUF Stop: 12/19/24 20:59 Last Admin: 11/20/24 08:31 Dose: 12.5 mg Documented By: Admin: 11/19/24 20:11 Dose: 12.5 mg Documented By: BRITTANY Simvastatin (Simvastatin 20 Mg Tab) 20 mg PO PM YOUSUF Stop: 12/19/24 20:59 Last Admin: 11/19/24 20:12 Dose: 20 mg Documented By: BRITTANY Vitamin D (Cholecalciferol 25 Mcg (1000 Units) Tab) 50 mcg PO QAM YOUSUF Stop: 12/20/24 08:59 Last Admin: 11/20/24 08:30 Dose: 50 mcg Documented By: GENIA Discontinued Medications Sodium Chloride (Nss) 1,000 mls @ 50 mls/hr IV .Q20H YOUSUF Stop: 11/22/24 12:14 Last Infusion: 11/19/24 19:01 Dose: Infused Documented By: Admin: 11/19/24 12:30 Dose: 50 mls/hr Documented By: ANAY Potassium Chloride/Sodium Chloride (Normal Saline W/20 Meq Kcl) 20 meq in 1,000 mls @ 60 mls/hr IV .[id number] YOUSUF Stop: 11/20/24 11:21 Last Infusion: 11/20/24 09:59 Dose: Infused Documented By: Admin: 11/19/24 20:10 Dose: 60 mls/hr Documented By: BRITTANY Ioversol (Optiray 320 125ml) 112 ml IV ONCE ONE Stop: 11/19/24 12:52 Last Admin: 11/19/24 12:51 Dose: 112 ml Documented By: IRVING Lisinopril (Lisinopril 40 Mg Tab) 40 mg PO NOW STA Stop: 11/19/24 16:15 Last Admin: 11/19/24 17:11 Dose: 40 mg Documented By: ANAY Lorazepam (Lorazepam 2 Mg/1 Ml Vial) 0.5 mg IV NOW STA Stop: 11/19/24 12:30 Last Admin: 11/19/24 13:03 Dose: 0.5 mg Documented By: ANAY Meclizine HCl (Meclizine Hcl 25 Mg Tab) 25 mg PO NOW STA Stop: 11/19/24 12:30 Last Admin: 11/19/24 13:03 Dose: 25 mg Documented By: ANAY Methylprednisolone (Methylprednisolone 125 Mg/2 Ml Vial) 40 mg IV NOW STA Stop: 11/19/24 16:27 Last Admin: 11/19/24 17:11 Dose: 40 mg Documented By: ANAY Potassium Chloride (Potassium Chloride Crtab 20 Meq Tabcr) 20 meq PO NOW STA Stop: 11/19/24 15:39 Last Admin: 11/19/24 17:11 Dose: 20 meq Documented By: ANAY Discharge Plan Visit Data Chief Complaint: Dizziness Stated Complaint: DIZZY, R CHEEK DISCOMFORT ED Provider: Chano Mcfadden Discharge Problem: Dizziness Patient Disposition: Admitted As Inpatient Condition: Good Discharge Instructions Interventions: ED Discharge Assessment Last Done: 11/19/24 18:17
--- NOTE | 2024-11-19 13:13 | CT Scan Report ---
CT angio neck with con, CT angio head w con CLINICAL HISTORY: neuro deficit, acute stroke suspected. TECHNIQUE: Following the IV administration of 112 of Optiray, CT angiogram of the neck and brain was performed from the aortic arch to the skull apex. Images are reviewed in the axial, sagittal, and cor onal planes. 3-D MIPS images are created and assessed. IV contrast was administered without complicat ion. All measurements were calculated based on NASCET criteria. A dose lowering technique was utiliz ed adhering to the principles of ALARA. CT DOSE: 1093.84 mGy.cm COMPARISON STUDY: None FINDINGS: Bilateral common and internal carotid and bilateral vertebral arteries show no significant narrowing or occlusion. Basilar artery is widely patent. Anterior, middle, and posterior cerebral art eries are patent bilaterally. There is origin of the posterior cerebral arteries. No intracrani al aneurysm. Cerebral venous sinuses opacify normally. IMPRESSION: No significant arterial narrowing or occlusion seen at the neck or brain. ACT 112: Negative or not required by law. The above report was generated using voice recognition software. It may contain grammatical, syntax o r spelling errors. Electronically signed by: Siddharth Bauman M.D. 11/19/2024 1:11 PM
[2024-11-19 13:19] LABS: INR 1.1 (0.9-1.1); Partial Thromboplastin Time 31 Seconds (21-31); Prothrombin Time 11.4 Seconds (9.0-12.0)
[2024-11-19 14:06] LABS: Appearance Urine Clear (Clear); Bacteria Urine Automated None Seen (None Seen); Cast Urine Automated 0-2 /lpf (0-2); Epithelial Cell Urine Auto 0-2 /hpf (0-2); Glucose Urine UA Negative (Negative); RBC Urine Automated 0-2 /hpf (0-2); WBC Urine Automated >50 /hpf (0-5)
--- NOTE | 2024-11-19 15:56 | History & Physical Report ---
Date of Service November 19, 2024 Assessment & Plan (1) Dizziness: (2) Facial paresthesia: (3) Paroxysmal atrial fibrillation: (4) Cardiac pacemaker in situ: (5) Hypertension: (6) Hypothyroidism: (7) NSVT (nonsustained ventricular tachycardia): Plan #Vertigo #Dizziness #Facial paresthesia 79yo female with hx CVA in 2013 2nd to afib, has been on eliquis/no missed doses reported presented CT head negative for acute CVA, CTA head/neck not overly impressive EKG atrial paced, Trop 5.1, no CP/SOB reported Unable to get MRI w/ current pacemaker at this time but doesn't appear c/w acute CVA but more likely inner ear however admit for further work-up/eval as below: DDx: vertigo from ?labyrinthitis vs BBPV vs recent URI/sinus issues vs possible CVA/TIA- noted elevated BP w/ hx CVA on eliquis but BP was low this AM. EKG atrial paced Admit telemetry Continue eliquis BID, defer any antiplatelet at this time but do note CT shoes small vessel disease Check orthostatic VS Pacemaker interrogation to see if any arrhythmia given her hx (also reported "similar short lived episode ~6 wks ago), ?episodes NSVT possible vs other Check ECHO given no recent/murmur on exam Hold HCTZ for now. 20meq KCL PO x 1 ordered and added to IVF x 1L. Possible reduction vs stop pending given patient reports/pcp rec in past Check TSH given hx hypothyroidism/Na 135 on admission Check Lyme w/ facial symptoms and vertigo for alternative etiology and slight bump AST 56, all other LFTs wnl Per discussion w/ supervising provider --> meclizine 12.5mg TID SCHEDULED given improvement. Solu-medrol 40mg IV x 1 now, make TID Pepcid IV BID for now for GI proph Fall precautions PT/OT consults Consider cards consult if needed if any abn echo/arrhythmia but monitoring response to meclizine/steroids for possible labyrinthitis at this time Monitor labs/exam in AM - added a1c/lipid #Afib/flutter, Hx NSVT -- plan to check pacer, continue diltiazem, atenolol 37.5mg BID, amiodarone 200mg daily, eliquis BID monitor on telemetry, check pacer and keep electrolytes replete - supplemental K ordered, mag wnl 2.0 #HTN - elevations in ER - ER provider instructed to take her home diltiazem Plan to continue lisinopril 40mg daily, atenolol 37.5mg BID Monitor for adjustment #HLD - on simvastatin at baseline which has been continued but note possible interactions w/ her diltiazem but again will continue given on at home #Hypokalemia - K 3.3, Mag wnl. Suspect 2nd to ongoing HCTZ use as on 25mg daily and placing on hold for now - possible reduction vs stopping pending orthostatics/vitals/etc Ordered 20meq PO Kcl x 1 but also added to IVF x 1 L to keep closer to 2 w/ hx afib/flutter/etc as above Note urine cx pending given UA w/ 3+ leuk esterase >50 WBC but no bacteria however patient denies back pain/frequency/fever/chills and no leukocytosis/L shift on differential but will monitor for any issues DVT proph: eliquis continued Dispo: admit to PCU, meclizine/steroids and holding diuretics/checking orthostatic VS. PT/OT evals to be undertaken Full code updated at bedside History of Present Illness Chief Complaint: vertigo Primary Care Provider: Kitty Mack MD 79yo female with PMHx significant for afib/flutter/NSVT, hx CVA 2013 2nd to afib, on eliquis, pacemaker placement, HTN, HLD, hypothyroidism presented for vertigo starting this morning around 10am. Patient evaluated in B5, at bedside. Reports was in her laundry room around 10am and looked down and all the sudden felt like the room was spinning and that she was going to pass out. No fall/LOC and was able to use wall/things in home to get to her recliner chair and sat down. She reports this morning she took her AM Atenolol and HCTZ around 8am but didn't eat much and held off her diltiazem as she felt her symptoms related to BP and didn't want to make them worse. She reports her BP was 115/65 and she believes her HR was 62. Reports was bringing her machine to repeat but didn't feel well and presented to the ER. No palpitations reported but did note similar type episode about 6 wks ago but was short lived and felt was related to recent PreserVision and resolved within two weeks of stopping. No recent travel and has been compliant w/ her eliquis dosing. No recent URI/fever but has chronic sinus issues. Is also atenolol and amiodarone, but reports she didn't initially want to go back on amiodarone and liked being on fleccanide but that it "messed her up". Follows with Dr Valverde. Does appear dry and did endorse prior recs by Dr Hernandez to consider stopping her HCTZ but that other providers/cards felt should be continued. Endorses feeling MUCH better since IVF and meclizine in ER but still ongoing vertigo w/ position changes. She denies any recent tick bites but does report they have been out to camp recently and will also check lyme for completeness. No fever/chills, chest pain, shortness of breath, headache, urinary frequency (outside of increased UOP w/ IVF in ER), no bleeding or abdominal pain reported (but does get nauseated with turning her head from side to side, also w/ some facial tingling on the right at times). HTN at the moment -- BP 183/102 and due for her lisinopril 40mg which she takes at 1600 and discussed will order dose now. Interestingly she does report when asked about ECHO which she denies having had recently, she had "US" of her belly for Dr Flanagan and was recommended to be on acid medication for reflux but was unable to tolerate, but no epigastric pain. Denies black stools/blood but does endorse gets darker stools when she does need to use pepto-bismol. Discussed admission for evaluation for vertigo, pacemaker interrogation, therapy evals. Full code as discussed. ER Course: CT head, CTA head/neck without acute abn. EKG atrial paced with prolonged AV conducition, nonspecific ST/T wave abn, rates 63bpm Allergies Allergy/AdvReac Type Severity Reaction Status Date / Time azithromycin Allergy Mild Rash Verified 09/13/19 10:43 erythromycin base Allergy Mild Rash Verified 09/13/19 10:43 levofloxacin Allergy Mild Rash Verified 09/13/19 10:43 Penicillins Allergy Mild Rash Verified 09/13/19 10:43 prednisone Allergy Mild RASH Verified 09/13/19 10:43 Home Medications Medication Instructions Recorded Confirmed Type calcium 250 mg (as phosphate)-vit 2 tab PO QAM 09/13/19 11/19/24 History D3 10 mcg (400 unit) chewable tablet (Caltrate Gummy Bites) cholecalciferol (vitamin D3) 50 50 mcg PO QAM 09/13/19 11/19/24 History mcg (2,000 unit) capsule (Vitamin D3) coQ10 (ubiquinol) 100 mg capsule 100 mg PO DAILY 09/13/19 11/19/24 History cyanocobalamin (vitamin B-12) 1,000 mcg PO DAILY 09/13/19 11/19/24 History 1,000 mcg tablet hydrochlorothiazide 25 mg tablet 25 mg PO QAM 09/13/19 11/19/24 History levothyroxine 88 mcg tablet 88 mcg PO QAM 09/13/19 11/19/24 History lisinopril 40 mg tablet 20 mg PO DAILY 09/13/19 11/19/24 History multivitamin 1 tab PO DAILY 09/13/19 11/19/24 History simvastatin 20 mg tablet 20 mg PO PM 09/13/19 11/19/24 History vitamin E 268 mg (400 unit) capsule 400 unit PO DAILY 09/13/19 11/19/24 History apixaban 5 mg tablet (Eliquis) 5 mg PO BID 12/27/22 11/19/24 History glucosamine-chondroitin 250 mg-200 2 tab PO DAILY 12/27/22 11/19/24 History mg tablet (Osteo Bi-Flex) diltiazem HCl 120 mg 120 mg PO DAILY #30 caps 01/24/23 11/19/24 Rx capsule,extended release 24 hr amiodarone 200 mg tablet 200 mg PO DAILY 11/19/24 11/19/24 History atenolol 25 mg tablet 37.5 mg PO BID 11/19/24 11/19/24 History Past Med/Surg History Problem List (Updated 11/19/24 @ 13:09 by Chano Mcfadden MD) Dizziness (Acute) Atrial fibrillation with rapid ventricular response (Acute) Paroxysmal atrial fibrillation Afib (Acute) Atrial flutter Elevated troponin (Acute) Cardiac pacemaker in situ (Acute) Left bundle branch block (Acute) Elevated hemoglobin (Acute) Stroke 10/2013 (NO DEFECITS CURRENTLY/FULLY RECOVERED) Hypothyroidism Hypertension (Acute) NSVT (nonsustained ventricular tachycardia) (Acute) Encounter for pre-operative examination Facial paresthesia (Acute) Nausea (Acute) Medical History (Updated 11/19/24 @ 13:09 by Chano Mcfadden MD) Osteoarthritis Hx of mitral valve prolapse Surgical History History of dilatation and curettage H/O total hysterectomy History of colonoscopy History of appendectomy History of tooth extraction Hx of tonsillectomy H/O cardiac radiofrequency ablation X 2 (02/2018 LAST ONE) History of cardioversion X 2 (2 YEARS AGO) Family History Other No significant family history Social History Smoking Status: Never smoker Second Hand Exposure: No; Do You Dip or Chew Tobacco: No; Hx Alcohol Use: No Hx Substance Use: No Preferred Language: Romanian Communication Ability: Effective Resin Maker Required: No Beliefs That Will Affect Care: None Current Living Situation: Significant Other Other Information That Helps Us Care for You: No Feels Safe at Home: Yes Safety Concerns: Feels Safe At This Time Assistive Devices: Glasses Review of Systems Review of Systems: All systems reviewed & are unremarkable except as noted in HPI & below Physical Exam Physical Exam: General: 79yo female getting back into bed with help of , not turning her head at all during this to prevent worsened dizziness HEENT: mm slightly dry, trachea midline, slight R nystagmus Resp: even/unlabored, no wheezing/rales, on room air CV: irregularly irregular, paced on monitor, +systolic murmur, ?S3 vs diasolic murmur, no pitting edema/calf tenderness, pulses present GI: +BS, soft/no overt tenderness : no steiner, voiding in bathroom MSK/Neuro: able to follow commands, not confused, moves all extremities, no significant facial droop/slurred speech or dysarthria Psych: AOx3, cooperative with exam at bedside. Results & Data Results & Data Vital Signs (Past 12 Hours) Vital Signs Temp Pulse Pulse Resp BP BP Pulse Ox 11/19/24 15:24 78 16 183/102 H 99 11/19/24 14:02 67 18 175/106 H 98 11/19/24 13:40 16 11/19/24 13:30 62 24 98 11/19/24 13:30 168/88 H 11/19/24 13:28 65 17 157/92 H 97 11/19/24 13:27 157/92 H 11/19/24 13:27 157/92 H 11/19/24 13:27 68 15 97 11/19/24 13:06 194/121 H 11/19/24 13:03 69 24 97 11/19/24 12:39 60 13 99 11/19/24 12:39 63 11/19/24 12:30 185/100 H 11/19/24 12:27 61 15 11/19/24 12:18 61 19 98 11/19/24 12:16 195/107 H 11/19/24 12:10 65 15 195/107 H 98 11/19/24 12:10 11/19/24 11:55 36.9 C 65 16 187/95 H 98 O2 Del Method 11/19/24 15:24 Room Air 11/19/24 14:02 Room Air 11/19/24 13:40 11/19/24 13:30 11/19/24 13:30 11/19/24 13:28 Room Air 11/19/24 13:27 11/19/24 13:27 11/19/24 13:27 11/19/24 13:06 11/19/24 13:03 11/19/24 12:39 11/19/24 12:39 11/19/24 12:30 11/19/24 12:27 11/19/24 12:18 11/19/24 12:16 11/19/24 12:10 Room Air 11/19/24 12:10 Room Air 11/19/24 11:55 Room Air Laboratory Results 11/19/24 11/19/24 11/19/24 Range/Units 13:20 12:38 12:25 WBC 8.25 (4.8-10.8) K/ul RBC 4.58 (4.20-5.40) M/uL Hgb 12.8 (12.0-16.0) g/dl POC Hgb 13.6 (12.0-16.0) g/dl Hct 39.9 (37.0-47.0) % POC Hct 40 (37-47) % MCV 87.1 (80.0-100.0) fL MCH 27.9 (25.0-34.0) pg MCHC 32.1 (32.0-36.0) g/dL RDW Std Deviation 47.8 H (36.4-46.3) fL RDW Coeff of Neville 15.1 H (11.5-14.5) % Plt Count 301 (130-400) K/uL MPV 9.7 (9.4-12.4) fL Immature Gran % (Auto) 0.5 % Neut % (Auto) 66.8 % Lymph % (Auto) 20.0 % Bradford % (Auto) 12.1 % Eos % (Auto) 0.4 % Baso % (Auto) 0.2 % Neut # (Auto) 5.51 (1.40-6.50) K/uL Lymph # (Auto) 1.65 (1.20-3.40) K/uL Bradford # (Auto) 1.00 H (0.11-0.59) K/uL Eos # (Auto) 0.03 (0.00-0.50) K/uL Baso # (Auto) 0.02 (0.00-0.20) K/uL Immature Gran # (Auto) 0.04 (0.01-0.20) K/uL PT 11.4 (9.0-12.0) Seconds INR 1.1 (0.9-1.1) APTT 31 (21-31) Seconds PTT Ratio 1.2 POC Sodium 137 (135-144) mmol/L Sodium 135 L (136-145) mmol/L POC Potassium 3.2 L (3.3-5.0) mmol/L Potassium 3.3 L (3.5-5.1) mmol/L POC Chloride 98 L (101-112) mmol/L Chloride 99 (98-107) mmol/L Carbon Dioxide 27 (21-32) mmol/L POC Total CO2 25 (24-31) mmol/L Anion Gap 9 (3-11) POC Anion Gap 18.0 (16-25) mmol/L POC BUN 14 (7-18) mg/dl BUN 15 (6-23) mg/dl Creatinine 0.83 (0.6-1.2) mg/dl POC Creatinine 0.9 (0.6-1.3) mg/dl Est Cr Clr Drug Dosing 57.4 ml/min eGFR 71.22 BUN/Creatinine Ratio 18.1 (10-20) Glucose 96 (70-99(Fasting)) mg/dl POC Glucose (other) 95 (70-99) mg/dl Calcium 9.0 (8.6-10.3) mg/dl POC Ioniz Calcium Yaa 1.16 (1.12-1.32) mmol/l Magnesium 2.0 (1.7-2.4) mg/dl Total Bilirubin 0.6 (0.2-1.0) mg/dl AST 56 H (13-39) U/L ALT 41 (7-52) U/L Alkaline Phosphatase 62 (34-104) U/L Troponin I High Sens 5.1 (0-14) pg/ml Total Protein 7.5 (6.0-8.3) gm/dl Albumin 3.9 (3.4-5.0) gm/dl Globulin 3.6 (2.5-4.0) gm/dl Albumin/Globulin Ratio 1.1 (0.9-2) TSH 5.613 H (0.300-4.500) uIu/ml Free T4 Pending Urine Color Yellow Urine Appearance Clear (Clear) Urine pH 7.5 (4.5-7.5) Ur Specific [place] 1.021 (1.000-1.030) Urine Protein Negative (Negative) Urine Glucose (UA) Negative (Negative) Urine Ketones Negative (Negative) Urine Blood Negative (Negative) Urine Nitrite Negative (Negative) Urine Bilirubin Negative (Negative) Urine Urobilinogen Negative (Negative) Ur Leukocyte Esterase 3+ H (Negative) Urine WBC (Auto) >50 H (0-5) /hpf Urine RBC (Auto) 0-2 (0-2) /hpf U Hyaline Cast (Auto) 0-2 (0-2) /lpf U Epithel Cells (Auto) 0-2 (0-2) /hpf Urine Bacteria (Auto) None Seen (None Seen) Urine Comment Lyme Disease Screen Negative (Negative) Diagnostic Findings Head CT 11/19/24 12:10 CT head/brain wo con CLINICAL HISTORY: neuro deficit, acute stroke suspected. TECHNIQUE: Multiple axial CT images of the head were obtained without contrast. A dose lowering technique was utilized adhering to the principles of ALARA. COMPARISON: None FINDINGS: No intracranial hemorrhage seen. No mass effect, midline shift, or hydrocephalus. There is moderate patchy periventricular hypodensity which is nonspecific but usually represents chronic small vessel ischemic change. No skull fracture seen. Visualized paranasal sinuses and mastoid air cells are clear. IMPRESSION: No acute findings. ACT 112: Negative or not required by law. The above report was generated using voice recognition software. It may contain grammatical, syntax or spelling errors. Electronically signed by: Siddharth Bauman M.D. 11/19/2024 1:05 PM Head CTA 11/19/24 12:10 CT angio neck with con, CT angio head w con CLINICAL HISTORY: neuro deficit, acute stroke suspected. TECHNIQUE: Following the IV administration of 112 of Optiray, CT angiogram of the neck and brain was performed from the aortic arch to the skull apex. Images are reviewed in the axial, sagittal, and coronal planes. 3-D MIPS images are created and assessed. IV contrast was administered without complication. All measurements were calculated based on NASCET criteria. A dose lowering technique was utilized adhering to the principles of ALARA. CT DOSE: 1093.84 mGy.cm COMPARISON STUDY: None FINDINGS: Bilateral common and internal carotid and bilateral vertebral arteries show no significant narrowing or occlusion. Basilar artery is widely patent. Anterior, middle, and posterior cerebral arteries are patent bilaterally. There is origin of the posterior cerebral arteries. No intracranial aneurysm. Cerebral venous sinuses opacify normally. IMPRESSION: No significant arterial narrowing or occlusion seen at the neck or brain. ACT 112: Negative or not required by law. The above report was generated using voice recognition software. It may contain grammatical, syntax or spelling errors. Electronically signed by: Siddharth Bauman M.D. 11/19/2024 1:11 PM Neck CTA 11/19/24 12:10 CT angio neck with con, CT angio head w con CLINICAL HISTORY: neuro deficit, acute stroke suspected. TECHNIQUE: Following the IV administration of 112 of Optiray, CT angiogram of the neck and brain was performed from the aortic arch to the skull apex. Images are reviewed in the axial, sagittal, and coronal planes. 3-D MIPS images are created and assessed. IV contrast was administered without complication. All measurements were calculated based on NASCET criteria. A dose lowering technique was utilized adhering to the principles of ALARA. CT DOSE: 1093.84 mGy.cm COMPARISON STUDY: None FINDINGS: Bilateral common and internal carotid and bilateral vertebral arteries show no significant narrowing or occlusion. Basilar artery is widely patent. Anterior, middle, and posterior cerebral arteries are patent bilaterally. There is origin of the posterior cerebral arteries. No intracranial aneurysm. Cerebral venous sinuses opacify normally. IMPRESSION: No significant arterial narrowing or occlusion seen at the neck or brain. ACT 112: Negative or not required by law. The above report was generated using voice recognition software. It may contain grammatical, syntax or spelling errors. Electronically signed by: Siddharth Bauman M.D. 11/19/2024 1:11 PM Supervising Physician Co-Signing Physician Notes The patient was seen by me. The chart was reviewed. Case discussed with JEN Johnson. Agree with assessment and plan PG Care Time/CCT Total # of Minutes Spent Total Time Spent with Patient: Total time spent is greater than 50% in coordination of care (as documented) at patient's floor/unit and/or counseling patient: Coding Level of Care Code 83047 INT INP/OBS CARE 3/75MIN Diagnoses Dizziness R42 Facial paresthesia R20.9 Paroxysmal atrial fibrillation I48.0 Cardiac pacemaker in situ Z95.0 Hypertension I10 Hypothyroidism E03.9 NSVT (nonsustained ventricular tachycardia) I47.29
[2024-11-19 16:26] LABS: Thyroid Stimulating Hormone 5.613 uIu/ml (0.300-4.500)
[2024-11-19] MEDS: POTASSIUM CHLORIDE CRTAB 20 MEQ TABCR PO STA (17:11)
[2024-11-19] MEDS ORDERED: ONDANSETRON INJ 2 MG/ML 2 ML VIAL IV PRN (18:42)
[2024-11-19] MEDS: NSS + 20MEQ KCL 20 MEQ/1,000 ML BAG IV SCH (20:10)
[2024-11-19] MEDS: FAMOTIDINE 20MG IV PUSH 20 MG/5 ML SYR IV SCH (20:10)
[2024-11-19] MEDS: ATENOLOL 25 MG TABLET PO SCH (20:11)
[2024-11-19] MEDS: APIXABAN 5 MG TABLET PO SCH (20:11)
[2024-11-19] MEDS: MECLIZINE 12.5 MG TAB PO SCH (20:11)
[2024-11-19] MEDS: SIMVASTATIN 20 MG TAB PO SCH (20:12)
[2024-11-20] MEDS: LEVOTHYROXINE SODIUM 88 MCG TABLET PO SCH (05:42)
[2024-11-20 06:04] LABS: Hematocrit (blood only) 37.4 % (37.0-47.0); Hemoglobin 11.9 g/dl (12.0-16.0); Mean Corpuscular Hemoglobin 28.0 pg (25.0-34.0); Mean Corpuscular Volume 88.0 fL (80.0-100.0); Platelet Count 276 K/uL (130-400); RDW Standard Deviation 48.6 fL (36.4-46.3); Red Blood Count 4.25 M/uL (4.20-5.40); White Blood Count 4.82 K/ul (4.8-10.8)
[2024-11-20 06:24] LABS: Alanine Aminotransferase 40.0 U/L (7-52); Albumin Globulin Ratio 1.3 (0.9-2); Alkaline Phosphatase 54.0 U/L (34-104); Anion Gap 7.0 (3-11); Bilirubin,Total 0.5 mg/dl (0.2-1.0); Blood Urea Nitrogen 17.0 mg/dl (6-23); Calcium 8.7 mg/dl (8.6-10.3); Carbon Dioxide 28.0 mmol/L (21-32); Chloride 106.0 mmol/L (98-107); Cholesterol 151.0 mg/dl (0-200); Creatinine Clr Calc Pharmacy 49.4 ml/min; Globulin 2.8 gm/dl (2.5-4.0); Glucose 153.0 mg/dl (70-99(Fasting)); HDL Cholesterol 62.0 mg/dl; Magnesium 2.0 mg/dl (1.7-2.4); Potassium 4.0 mmol/L (3.5-5.1); Sodium 141.0 mmol/L (136-145); Total Protein 6.5 gm/dl (6.0-8.3); Triglycerides 57.0 mg/dl (0-150)
[2024-11-20 08:07] LABS: Hemoglobin A1C 5.6 % (4.5-5.6)
[2024-11-20] MEDS: AMIODARONE 200 MG TAB PO SCH (08:28)
[2024-11-20] MEDS: CHOLECALCIFEROL 25 MCG (1000 UNITS) TAB PO SCH (08:30)
--- NOTE | 2024-11-20 08:30 | Hospitalist Progress Note ---
Date of Service November 20, 2024 Assessment & Plan (1) Dizziness: (2) Facial paresthesia: (3) Paroxysmal atrial fibrillation: (4) Cardiac pacemaker in situ: (5) Hypertension: (6) Hypothyroidism: (7) NSVT (nonsustained ventricular tachycardia): (8) Acute labyrinthitis: Plan #Vertigo #Dizziness #Facial paresthesia Suspected labyrinthitis, recent sinus sx reported 79yo female with hx CVA in 2013 2nd to afib, has been on eliquis/no missed doses reported presented CT head negative for acute CVA, CTA head/neck not overly impressive EKG atrial paced, Trop 5.1, no CP/SOB reported No MRI able to obtained w/ her pacemaker but did not appear acute CVA but did note small vessel disease on imaging. Lyme negative MUCH IMPROVED w/ steroids/meclizine and suspect likely underlying Labrynthitis --> continue Solumedrol 40mg q8h, Meclizine 12.5mg TID. Pepcid for GI proph on steroids/eliquis HCTZ remains on hold, dehydrated and hypokalemia on admission w/ underlying afib/flutter hx and suspect stop this vs reduce but will monitor BP/hydration OFF IVF and this to see if needs resumed. Orthostatic VS not overly impressive TSH elevated and T4 checked/elevated but low T3, 2.2. ?reactive from recent viral vs from amiodarone. Did have slight bump AST and should monitor/consider touching base w/ [facility] cardiology in AM Interrogation notes two spikes which? related. Has been paced/caitie on monitor at times Eliquis BID continued ECHO pending Remains on telemetry PT/OT consults pending Fall precautions #Afib/flutter, Hx NSVT -- pacer check obtained, ?elevated w/ electrolytes. Have been replaced and stable K/Mag Remains on atenolol, dilt 120mg daily, atenolol 37.5mg BID, eliquis BID Consider touching base w/ Dr Valverde in AM pending ECHO/telemetry monitoring #HTN - elevations in ER and took her diltiazem Remains on dilta, lisinopril, atenolol 37.5mg BID Stable 175/84 with age/monitoring off IVF for now given improvement in PO #HLD - on simvastatin at baseline which has been continued but note possible interactions w/ her diltiazem but again will continue given on at home Lipid panel TRG 57, LDL 151, LDL 78, HDL 622. #Hypokalemia - K 3.3, Mag wnl. PO/IV replacement with IVF and K 4.0 on am labs and IVF stopped given improvement PO HCTZ remains on hold -- monitor to stop/reduce pending BP/electrolytes Note urine cx pending given UA w/ 3+ leuk esterase >50 WBC but no bacteria however patient denies back pain/frequency/fever/chills and no leukocytosis/L shift on differential but will monitor for any issues DVT proph: eliquis continued Dispo: continued inpatient stay on steroids/meclzine, therapy evals and ECHO pednin Hopeful dc 11/21 pending therapy evals/status, on/off HCTZ Admission and Anticipated Discharge Date Admission Date: November 19, 2024 Supervising Physician Co-Signing Physician Notes The patient was not seen by me. The chart was reviewed. Case discussed with JEN Johnson. Agree with assessment and plan Subjective Evaluated this morning, sitting up in bed, MUCH improved from when I saw her in the ER. Significant improvement in dizziness, improvement w/ turning her head and ambulating in the room. Got meds this morning, improved PO intake. Discussed IVF to stop/monitoring. K improved and suspect maybe causing low K and leading to afib/elevated HR contributing to sx prior as well but suspect more inner ear/labyrinthitis 2nd to sinus/possible recent URI. Discussed therapy evals, monitoring on telemetry and continued meclizine/steroids. Potential dc. Questions/concerns addressed at this time. Physical Exam 2 Physical Exam: General: 79yo female sitting up in bed, appears MUCH improved, no further significant vertigo/much improved overall/able to move head without significant repeat symptoms HEENT: mm improved/stable, trachea midline Resp: even/unlabored, no wheezing/rales, on room air CV: paced on monitor, HR in 50s-60s at present, +systolic murmur, no pitting edema/calf tenderness GI: +BS, soft/no overt tenderness : no steiner, voiding in bathroom MSK/Neuro: able to follow commands, not confused, moves all extremities, no significant facial droop/slurred speech or dysarthria Psych: AOx3, cooperative with exam Results & Data Results & Data Vital Signs (Past 12 Hours) Vital Signs Temp Pulse Pulse Resp BP Pulse Ox O2 Del Method 11/20/24 05:24 60 11/20/24 03:08 36.9 C 70 16 133/79 97 Room Air 11/19/24 23:14 37 C 62 16 154/87 H 94 Room Air 11/19/24 21:46 65 11/19/24 20:30 36.4 C L 62 18 163/84 H 94 Room Air Laboratory Results 11/20/24 05:37 11/20/24 05:37 Mag 2.0 A1c 5.6 TB 0.5, AST 46, ALT 40, ALP 54 TSH 5.6, T4 1.65, T3 2.22 Lipid TRG 57, Chol 151, LDL 78, HDL [address] 11/19/24 12:10 CT head/brain wo con CLINICAL HISTORY: neuro deficit, acute stroke suspected. TECHNIQUE: Multiple axial CT images of the head were obtained without contrast. A dose lowering technique was utilized adhering to the principles of ALARA. COMPARISON: None FINDINGS: No intracranial hemorrhage seen. No mass effect, midline shift, or hydrocephalus. There is moderate patchy periventricular hypodensity which is nonspecific but usually represents chronic small vessel ischemic change. No skull fracture seen. Visualized paranasal sinuses and mastoid air cells are clear. IMPRESSION: No acute findings. ACT 112: Negative or not required by law. The above report was generated using voice recognition software. It may contain grammatical, syntax or spelling errors. Electronically signed by: Siddharth Bauman M.D. 11/19/2024 1:05 PM Head CTA 11/19/24 12:10 CT angio neck with con, CT angio head w con CLINICAL HISTORY: neuro deficit, acute stroke suspected. TECHNIQUE: Following the IV administration of 112 of Optiray, CT angiogram of the neck and brain was performed from the aortic arch to the skull apex. Images are reviewed in the axial, sagittal, and coronal planes. 3-D MIPS images are created and assessed. IV contrast was administered without complication. All measurements were calculated based on NASCET criteria. A dose lowering technique was utilized adhering to the principles of ALARA. CT DOSE: 1093.84 mGy.cm COMPARISON STUDY: None FINDINGS: Bilateral common and internal carotid and bilateral vertebral arteries show no significant narrowing or occlusion. Basilar artery is widely patent. Anterior, middle, and posterior cerebral arteries are patent bilaterally. There is origin of the posterior cerebral arteries. No intracranial aneurysm. Cerebral venous sinuses opacify normally. IMPRESSION: No significant arterial narrowing or occlusion seen at the neck or brain. ACT 112: Negative or not required by law. The above report was generated using voice recognition software. It may contain grammatical, syntax or spelling errors. Electronically signed by: Siddharth Bauman M.D. 11/19/2024 1:11 PM Neck CTA 11/19/24 12:10 CT angio neck with con, CT angio head w con CLINICAL HISTORY: neuro deficit, acute stroke suspected. TECHNIQUE: Following the IV administration of 112 of Optiray, CT angiogram of the neck and brain was performed from the aortic arch to the skull apex. Images are reviewed in the axial, sagittal, and coronal planes. 3-D MIPS images are created and assessed. IV contrast was administered without complication. All measurements were calculated based on NASCET criteria. A dose lowering technique was utilized adhering to the principles of ALARA. CT DOSE: 1093.84 mGy.cm COMPARISON STUDY: None FINDINGS: Bilateral common and internal carotid and bilateral vertebral arteries show no significant narrowing or occlusion. Basilar artery is widely patent. Anterior, middle, and posterior cerebral arteries are patent bilaterally. There is origin of the posterior cerebral arteries. No intracranial aneurysm. Cerebral venous sinuses opacify normally. IMPRESSION: No significant arterial narrowing or occlusion seen at the neck or brain. ACT 112: Negative or not required by law. The above report was generated using voice recognition software. It may contain grammatical, syntax or spelling errors. Electronically signed by: Siddharth Bauman M.D. 11/19/2024 1:11 PM PG Care Time/CCT Total # of Minutes Spent Total Time Spent with Patient: Total time spent is greater than 50% in coordination of care (as documented) at patient's floor/unit and/or counseling patient: Coding Level of Care Code 63953 SUB INP/OBS CARE 3/50MIN Diagnoses Dizziness R42 Facial paresthesia R20.9 Paroxysmal atrial fibrillation I48.0 Cardiac pacemaker in situ Z95.0 Hypertension I10 Hypothyroidism E03.9 NSVT (nonsustained ventricular tachycardia) I47.29 Acute labyrinthitis H83.09
[2024-11-20] MEDS ORDERED: NON-FORMULARY MEDICATION (Glucosamine-Chondroitin [Osteo Bi-Flex] 250-200 mg Tablet) PO SCH (09:00)
--- NOTE | 2024-11-20 16:13 | XCELERA ---
[id number]
--- NOTE | 2024-11-21 06:06 | Electrocardiogram Report ---
Test Reason : Blood Pressure : */* mmHG Vent. Rate : 63 BPM Atrial Rate : 63 BPM P-R Int : 258 ms QRS Dur : 84 ms QT Int : 462 ms P-R-T Axes : * 4 -18 degrees QTcB Int : 472 ms Atrial-paced rhythm with prolonged AV conduction Nonspecific ST and T wave abnormality Abnormal ECG When compared with ECG of 23-Jan-2023 12:45, Electronic atrial pacemaker has replaced Atrial flutter Vent. rate has decreased by 41 bpm T wave inversion less evident in Inferior leads Confirmed by Jurgen Haywood ([id number]) on 11/21/2024 6:06:03 AM Referred By: REFERRED SELF Confirmed By: Jurgen Haywood
[2024-11-21 06:39] LABS: Anion Gap 6.0 (3-11); Blood Urea Nitrogen 21.0 mg/dl (6-23); Calcium 8.9 mg/dl (8.6-10.3); Carbon Dioxide 29.0 mmol/L (21-32); Chloride 106.0 mmol/L (98-107); Creatinine Clr Calc Pharmacy 48.8 ml/min; Glucose 161.0 mg/dl (70-99(Fasting)); Magnesium 2.2 mg/dl (1.7-2.4); Potassium 4.2 mmol/L (3.5-5.1); Sodium 141.0 mmol/L (136-145)
--- NOTE | 2024-11-21 14:52 | Hospitalist Progress Note ---
Date of Service November 21, 2024 Assessment & Plan (1) Acute labyrinthitis: (2) Paroxysmal atrial fibrillation: (3) Cardiac pacemaker in situ: Plan 79yo female with PMHx significant for afib/flutter/NSVT, hx CVA 2013 2nd to afib, on eliquis, pacemaker placement, HTN, HLD, hypothyroidism presented for vertigo that started the morning she presented to the hospital. Though she denies a recent URI, she does have chronic sinus issues. She has greatly improved with medication throughout her hospital stay. #Acute labyrinthitis - recent sinus symptoms reported - CT head negative for acute CVA, CTA head/neck not overly impressive, EKG atrial paced, Lyme negative, trop WNL - continue Solumedrol 40mg q8h, Meclizine 12.5mg TID, Pepcid for GI proph on steroids/eliquis - HCTZ remains on hold, dehydrated and hypokalemia on admission w/ underlying afib/flutter hx and suspect stop this vs reduce but will monitor BP/hydration OFF IVF and this to see if needs resumed. Orthostatic VS not overly impressive - Echo with hyperdynamic systolic function, EF > 70%, no regional wall motion abnormalities, mild concentric LVH, severe left atrial dilation, sclerotic aortic valve without significant stenosis, mildmoderate MR, moderate pulmonary hypertension - Eliquis BID continued - PT/OT recommend return home #Afib/flutter, Hx NSVT -- pacer check obtained, ?elevated w/ electrolytes. Have been replaced and stable K/Mag - Remains on atenolol, dilt 120mg daily, atenolol 37.5mg BID, eliquis BID #HTN - Stable with age - Remains on dilt, lisinopril, atenolol 37.5mg BID #HLD - on simvastatin at baseline which has been continued but note possible interactions w/ her diltiazem but again will continue given on at home - Lipid panel TRG 57, LDL 151, LDL 78, HDL 622. #Hypokalemia -repleted and now WNL HCTZ remains on hold -- monitor to stop/reduce pending BP/electrolytes DVT proph: eliquis continued Dispo: Anticipate discharge home 11/22 Admission and Anticipated Discharge Date Admission Date: November 19, 2024 Supervising Physician Co-Signing Physician Notes chart reviewed, case d/w S Roque HANSEN, as above. Subjective Patient seen and evaluated at bedside. She reports feeling significantly better. She says "it is night and day compared to when I first came in, I am 100% improved!" She notes she had a brief episode of dizziness during the Javier- Hallpike test with PT earlier, but denies any dizziness with ambulation. She reports feeling well enough to return home. We discussed discharge today, but unfortunately her is unable to pick her up from the hospital today. He has an appointment in [place] tomorrow morning and can pick her up tomorrow after that appointment. Will plan for discharge tomorrow morning, 11/22. No additional complaints or concerns at this time. Telemetry reviewed: Paced in 60s. Physical Exam Physical Exam: General: No acute distress, nondiaphoretic, well-developed, well-nourished. Skin: Warm, dry. No rashes or peripheral edema noted. Cardiac: Paced in the 60s. Systolic murmur noted. Pulm: Clear to auscultation bilaterally without wheezes, rales or rhonchi. Normal respiratory effort. 97% on room air. Abdominal: Soft, nontender, nondistended. Bowel sounds present. Neuro: A&O x3. No focal neurological deficits. Results & Data Results & Data Vital Signs (Past 12 Hours) Vital Signs Temp Pulse Pulse Resp BP Pulse Ox O2 Del Method 11/21/24 14:25 62 11/21/24 11:46 99.5 F 62 18 159/83 H 96 Room Air 11/21/24 08:46 98.2 F 71 18 146/80 H 95 Room Air 11/21/24 08:38 98.6 F 61 18 161/74 H 98 Room Air 11/21/24 04:50 97.7 F 69 18 137/80 96 Room Air Laboratory Results Reviewed BMP, mag Diagnostic Findings Reviewed head CT, head CTA, neck CTA Reviewed echocardiogram, pacemaker summary report, EKG Reviewed urine culture PG Care Time/CCT Total # of Minutes Spent Total Time Spent with Patient: Total time spent is greater than 50% in coordination of care (as documented) at patient's floor/unit and/or counseling patient: Coding Level of Care Code 24133 SUB INP/OBS CARE 2/35MIN Diagnoses Acute labyrinthitis H83.09 Paroxysmal atrial fibrillation I48.0 Cardiac pacemaker in situ Z95.0
[2024-11-22] MEDS: ACETAMINOPHEN 325 MG TAB PO PRN (00:40)
[2024-11-22 11:51] VITALS: RESP 17
[2024-11-22 16:16] VITALS: TEMP 97.5; O2SAT 96
--- NOTE | 2024-11-22 18:06 | Discharge Summary ---
Discharge Summary Date of Service November 22, 2024 Principal Dx & Hospital Course #1 = Principal Diagnosis (1) Acute labyrinthitis: (2) Paroxysmal atrial fibrillation: (3) Cardiac pacemaker in situ: Plan 79yo female with PMHx significant for afib/flutter/NSVT, hx CVA 2013 2nd to afib, on eliquis, pacemaker placement, HTN, HLD, hypothyroidism presented for vertigo that started the morning she presented to the hospital. Though she denies a recent URI, she does have chronic sinus issues. She has greatly improved with medication throughout her hospital stay. #Acute labyrinthitis - recent sinus symptoms reported - CT head negative for acute CVA, CTA head/neck not overly impressive, EKG atrial paced, Lyme negative, trop WNL - Treated with IV Solu-Medrol and meclizine 12.5 mg 3 times daily while inpa tient. Discharged with taper of methylprednisolone 32 mg x 2 days, 16 mg x 2 days, 8 mg x 2 days, as well as meclizine 12.5 mg TID PRN vertigo/dizziness - Orthostatic VS not overtly impressive. HCTZ was reduced in half to 12.5 mg daily - Echo with hyperdynamic systolic function, EF > 70%, no regional wall motion abnormalities, mild concentric LVH, severe left atrial dilation, sclerotic aortic valve without significant stenosis, mildmoderate MR, moderate pulmonary hypertension - Eliquis BID continued - PT/OT recommend return home #Afib/flutter, Hx NSVT -- pacer check obtained, ?elevated w/ electrolytes. Have been replaced and stable K/Mag - Remains on atenolol, dilt 120mg daily, atenolol 37.5mg BID, Eliquis BID #HTN - Stable with age - Remains on dilt, lisinopril, atenolol 37.5mg BID - HCTZ reduced to 12.5 mg daily #HLD - on simvastatin at baseline which has been continued but note possible interactions w/ her diltiazem but again will continue given on at home - Lipid panel TRG 57, LDL 151, LDL 78, HDL 622. #Hypokalemia -repleted and now WNL DVT proph: eliquis continued Dispo: discharged home 11/22 Notes For Next Care Provider Monitor blood pressure and discontinue HCTZ if able, as was the likely culprit to her hypokalemia and blood pressure was reasonably controlled without this Medication Changes From Visit HCTZ reduced to 12.5 mg daily (previously 25 mg daily) Methylprednisolone taper Meclizine as needed Admission HPI Per Admitting Provider 79yo female with PMHx significant for afib/flutter/NSVT, hx CVA 2013 2nd to afib, on eliquis, pacemaker placement, HTN, HLD, hypothyroidism presented for vertigo starting this morning around 10am. Patient evaluated in B5, at bedside. Reports was in her laundry room around 10am and looked down and all the sudden felt like the room was spinning and that she was going to pass out. No fall/LOC and was able to use wall/things in home to get to her recliner chair and sat down. She reports this morning she took her AM Atenolol and HCTZ around 8am but didn't eat much and held off her diltiazem as she felt her symptoms related to BP and didn't want to make them worse. She reports her BP was 115/65 and she believes her HR was 62. Reports was bringing her machine to repeat but didn't feel well and presented to the ER. No palpitations reported but did note similar type episode about 6 wks ago but was short lived and felt was related to recent PreserVision and resolved within two weeks of stopping. No recent travel and has been compliant w/ her eliquis dosing. No recent URI/fever but has chronic sinus issues. Is also atenolol and amiodarone, but reports she didn't initially want to go back on amiodarone and liked being on fleccanide but that it "messed her up". Follows with Dr Valverde. Does appear dry and did endorse prior recs by Dr Hernandez to consider stopping her HCTZ but that other providers/cards felt should be continued. Endorses feeling MUCH better since IVF and meclizine in ER but still ongoing vertigo w/ position changes. She denies any recent tick bites but does report they have been out to camp rece ntly and will also check lyme for completeness. No fever/chills, chest pain, shortness of breath, headache, urinary frequency (outside of increased UOP w/ IVF in ER), no bleeding or abdominal pain reported (but does get nauseated with turning her head from side to side, also w/ some facial tingling on the right at times). HTN at the moment -- BP 183/102 and due for her lisinopril 40mg which she takes at 1600 and discussed will order dose now. Interestingly she does report when asked about ECHO which she denies having had recently, she had "US" of her belly for Dr Flanagan and was recommended to be on acid medication for reflux but was unable to tolerate, but no epigastric pain. Denies black stools/blood but does endorse gets darker stools when she does need to use pepto-bismol. Discussed admission for evaluation for vertigo, pacemaker interrogation, therapy evals. Full code as discussed. ER Course: CT head, CTA head/neck without acute abn. EKG atrial paced with prolonged AV conducition, nonspecific ST/T wave abn, rates 63bpm Discharge Exam General: No acute distress, nondiaphoretic, well-developed, well-nourished. Skin: Warm, dry. No rashes or peripheral edema noted. Cardiac: Paced in the 60s. Systolic murmur noted. Pulm: Clear to auscultation bilaterally without wheezes, rales or rhonchi. Normal respiratory effort. 97% on room air. Abdominal: Soft, nontender, nondistended. Bowel sounds present. Neuro: A&O x3. No focal neurological deficits. Discharge Plan Discharge Items Patient Disposition: Home - Self-Care Reason For Visit: VERTIGO Discharge Diagnosis: Vertigo, Labyrinthitis Condition on Discharge: Good Goals: You have been hospitalized for an acute medical problem. During your stay at [facility], we have made an effort to correct the problem that brought you to the hospital while keeping you as comfortable as possible. Medications were used to bring your condition under control and your discharge instructions will include directions for any medications you should take after leaving the hospital. Please make sure you see your Primary Care Provider as part of your follow up plan. Activity: Resume your previous activity Non-emergency contact: Primary Care Provider and Tool Lathe Operator Call non-emergency contact if: you have any medication questions, your symptoms worsen, your pain is not controlled, your pain is concerning for you and you have a fever Follow-up/Referrals: Villa Valverde, DO [Physician] - (Follow-up in 1-2 weeks) Kitty Mack MD [Primary Care Provider] - (Follow-up in 1-2 weeks) Diet: Heart Healthy Addtl Attending Provider Instructions: [place], You were admitted to the hospital with dizziness. CT scan of the head/neck was negative for stroke but you were unable to get MRI due to the pacemaker. The dizziness was most likely due to Labyrinthitis, an inner ear issue, given the sinus symptoms you had recently and dizziness that worsened with turning your head, indicating issue with inner ear. You were treated with IV steroids and a medication called Meclizine, with significant improvement in your symptoms. As discussed earlier in your hospital stay, your pacemaker interrogation did have two spikes that could have been episodes of fast heart rate/possibly afib/flutter but I also suspect maybe this is due to possible electrolyte issues with your low potassium level on admission and review of your historical labs indicate you have had low potassium in the past. You are on HCTZ (hydrochlorothiazide) and this is a diuretic that can make this worse. Your HCTZ has been REDUCED IN HALF and could possibly be discontinued all together - will defer this decision to your manager filter Dr Valverde. Co rex to monitor your blood pressure at home. Upon discharge from the hospital: * Continue your steroid taper as follows: Take methylprednisolone 32 mg x 2 days, then 16 mg x 2 days, then 8 mg x 2 days. * Take meclizine 12.5 mg 3 times daily NEEDED for vertigo/dizziness. * Your HCTZ was reduced to 12.5 mg daily (previously taking 25 mg daily). * Please follow-up with your PCP in 1-2 weeks. * Please follow-up with your manager filter, Dr. Valverde, in 1-2 weeks. Please return to the ER with any repeat/worsening symptoms, or for any other symptoms concerning for you. It has been a pleasure being a part of the medical team providing for you while you have been in the hospital. Take care! Pending Studies at Discharge: No Stand-Alone Forms: [employer], Smoking Cessation Medications and DC Order Prescriptions: New meclizine 12.5 mg tablet 12.5 mg PO TID PRN (Reason: dizziness) Qty: 30 0RF methylprednisolone 8 mg tablet 8 mg PO UD Qty: 14 0RF Rx Instructions: Take 32 mg x 2 days, then 16 mg x 2 days, then 8 mg x 2 days Continued levothyroxine 88 mcg Tablet 88 mcg PO QAM lisinopril 40 mg Tablet 20 mg PO DAILY Rx Instructions: DAILY IN AFTERNOON cyanocobalamin (vitamin B-12) 1,000 mcg Tablet 1,000 mcg PO DAILY vitamin E 400 unit Capsule 400 unit PO DAILY multivitamin Tablet,Chewable 1 tab PO DAILY cholecalciferol (vitamin D3) [Vitamin D3] 50 mcg (2,000 unit) Capsule 50 mcg PO QAM coQ10 (ubiquinol) 100 mg Capsule 100 mg PO DAILY calcium phosphate-vitamin D3 [Caltrate Gummy Bites] 250-400 mg-unit Tablet,Chewable 2 tab PO QAM simvastatin 20 mg Tablet 20 mg PO PM glucosamine-chondroitin [Osteo Bi-Flex] 250-200 mg Tablet 2 tab PO DAILY Eliquis 5 mg tablet 5 mg PO BID diltiazem HCl 120 mg capsule,extended release 24hr 120 mg PO DAILY Qty: 30 0RF amiodarone 200 mg tablet 200 mg PO DAILY atenolol 25 mg tablet 37.5 mg PO BID Changed hydrochlorothiazide 25 mg Tablet 12.5 mg PO QAM Qty: 30 0RF Discharge Orders: Discharge Order (Routine); Ordered 11/22/24 Ordered By: Lorraine Nevarez Admission Data Admit Date/Time: 11/19/24 16:30 Attending Provider: Alexey Tejada Admit Provider: Newton Renee Primary Care Provider: Kitty Mack Other Providers: Newton Renee Other Interventions: Discharge Summary Assessment (RN) Last Done: 11/22/24 15:10 Hospital Stay Data Consultations 11/19/24 16:03 ED Decision to Admit Stat Diagnostic Imagining Performed Head CT 11/19/24 12:10 CT head/brain wo con CLINICAL HISTORY: neuro deficit, acute stroke suspected. TECHNIQUE: Multiple axial CT images of the head were obtained without contrast. A dose lowering technique was utilized adhering to the principles of ALARA. COMPARISON: None FINDINGS: No intracranial hemorrhage seen. No mass effect, midline shift, or hydrocephalus. There is moderate patchy periventricular hypodensity which is nonspecific but usually represents chronic small vessel ischemic change. No skull fracture seen. Visualized paranasal sinuses and mastoid air cells are clear. IMPRESSION: No acute findings. ACT 112: Negative or not required by law. The above report was generated using voice recognition software. It may contain grammatical, syntax or spelling errors. Electronically signed by: Siddharth Bauman M.D. 11/19/2024 1:05 PM Head CTA 11/19/24 12:10 CT angio neck with con, CT angio head w con CLINICAL HISTORY: neuro deficit, acute stroke suspected. TECHNIQUE: Following the IV administration of 112 of Optiray, CT angiogram of the neck and brain was performed from the aortic arch to the skull apex. Images are reviewed in the axial, sagittal, and coronal planes. 3-D MIPS images are created and assessed. IV contrast was administered without complication. All measurements were calculated based on NASCET criteria. A dose lowering technique was utilized adhering to the principles of ALARA. CT DOSE: 1093.84 mGy.cm COMPARISON STUDY: None FINDINGS: Bilateral common and internal carotid and bilateral vertebral arteries show no significant narrowing or occlusion. Basilar artery is widely patent. Anterior, middle, and posterior cerebral arteries are patent bilaterally. There is origin of the posterior cerebral arteries. No intracranial aneurysm. Cerebral venous sinuses opacify normally. IMPRESSION: No significant arterial narrowing or occlusion seen at the neck or brain. ACT 112: Negative or not required by law. The above report was generated using voice recognition software. It may contain grammatical, syntax or spelling errors. Electronically signed by: Siddharth Bauman M.D. 11/19/2024 1:11 PM Neck CTA 11/19/24 12:10 CT angio neck with con, CT angio head w con CLINICAL HISTORY: neuro deficit, acute stroke suspected. TECHNIQUE: Following the IV administration of 112 of Optiray, CT angiogram of the neck and brain was performed from the aortic arch to the skull apex. Images are reviewed in the axial, sagittal, and coronal planes. 3-D MIPS images are cre ated and assessed. IV contrast was administered without complication. All measurements were calculated based on NASCET criteria. A dose lowering technique was utilized adhering to the principles of ALARA. CT DOSE: 1093.84 mGy.cm COMPARISON STUDY: None FINDINGS: Bilateral common and internal carotid and bilateral vertebral arteries show no significant narrowing or occlusion. Basilar artery is widely patent. Anterior, middle, and posterior cerebral arteries are patent bilaterally. There is origin of the posterior cerebral arteries. No intracranial aneurysm. Cerebral venous sinuses opacify normally. IMPRESSION: No significant arterial narrowing or occlusion seen at the neck or brain. ACT 112: Negative or not required by law. The above report was generated using voice recognition software. It may contain grammatical, syntax or spelling errors. Electronically signed by: Siddharth Bauman M.D. 11/19/2024 1:11 PM Pending Results Patient Have Any Pending Studies at Discharge: No Discharge Instructions Given to Patient (Per Discharging Provider) Raghav Bryson were admitted to the hospital with dizziness. CT scan of the head/neck was negative for stroke but you were unable to get MRI due to the pacemaker. The dizziness was most likely due to Labyrinthitis, an inner ear issue, given the sinus symptoms you had recently and dizziness that worsened with turning your head, indicating issue with inner ear. You were treated with IV steroids and a medication called Meclizine, with significant improvement in your symptoms. As discussed earlier in your hospital stay, your pacemaker interrogation did have two spikes that could have been episodes of fast heart rate/possibly afib/flutter but I also suspect maybe this is due to possible electrolyte issues with your low potassium level on admission and review of your historical labs indicate you have had low potassium in the past. You are on HCTZ (hydrochlorothiazide) and this is a diuretic that can make this worse. Your HCTZ has been REDUCED IN HALF and could possibly be discontinued all together - will defer this decision to your manager filter Dr Valverde. Continue to monitor your blood pressure at home. Upon discharge from the hospital: * Continue your steroid taper as follows: Take methylprednisolone 32 mg x 2 days, then 16 mg x 2 days, then 8 mg x 2 days. * Take meclizine 12.5 mg 3 times daily NEEDED for vertigo/dizziness. * Your HCTZ was reduced to 12.5 mg daily (previously taking 25 mg daily). * Please follow-up with your PCP in 1-2 weeks. * Please follow-up with your manager filter, Dr. Valverde, in 1-2 weeks. Please return to the ER with any repeat/worsening symptoms, or for any other symptoms concerning for you. It has been a pleasure being a part of the medical team providing for you while you have been in the hospital. Take care! Supervising Physician Co-Signing Physician Notes chart reviewed, case d/w S Roque HANSEN, as above. Total Time Total Time Spent Total Time Spent (In Minutes): Greater than 30 minutes spent completing this discharge process including direct patient care, medication reconciliation, documentation, review of labs and images, and coordination of care. Coding Level of Care Code 62370 INP/OBS DISCH >30 MIN Diagnoses Acute labyrinthitis H83.09 Paroxysmal atrial fibrillation I48.0 Cardiac pacemaker in situ Z95.0
[2024-11-22 18:48] VITALS: BP 155/83; PULSE 60
[2024-11-22] MEDS ORDERED: MECLIZINE HCL 25MG HOME PACK PO ONE (19:29)
[2024-11-23] MEDS ORDERED: methylPREDNISolone 4 MG TAB PO SCH (09:00)
== END 2024-11-22 20:05 | disposition home or self-care (01) | DRG 149 ==
LOC: SUATTDRO → ED 11:53 → SUATTDRO 16:30 → 4W 16:30